=== PATIENT | female | born 1995 | race Caucasian/White ===

== ENCOUNTER 2025-02-28 08:53 | Outpatient (AMB) | payer MEDICAID, SELFPAY ==
--- NOTE | 2025-02-28 09:12 | AMB.GYNCLNOT ---
Vital Signs 02/28/25 09:20 Height 1.68 m Height Method Stated Weight 84.085 kg Weight Measurement Method Standing Scale BMI 29.7 BP 123/70 Blood Pressure Source Automatic Cuff Blood Pressure Location Left Upper Arm Position Sitting Respiration 18 Pulse 80 Pulse Source Monitor Temp 97.2 F Temp Source Oral Pulse Oximetry (%) 98 Oxygen Delivery Method Room Air Allergies/Home Meds Allergies & Medications Allergies No Known Allergies Allergy (Verified 02/28/25 09:21) Medication Reconciliation ibuprofen 800 mg tablet 800 mg PO Q8H PRN pain #20 tabs 07/23/23 [Rx Confirmed 02/28/25] ondansetron 4 mg disintegrating tablet 4 mg PO Q8H PRN nausea and vomiting #20 tabs 08/03/23 [Rx Confirmed 02/28/25] vits no.126-ferrous fum 28 mg iron-folic acid 800 mcg tablet (Classic ) 0.126 - 28 tab PO DAILY 30 days #60 tabs 02/28/25 [Rx] Intake Visit Data Collection New Patient or Established: Established Patient (seen at [facility] within 3 years) Reason for Visit:: amenorrhea/ test Seen by Clinical Staff ONLY (RN/MA): No Filter Filler Required: No Do You Feel Safe at Home: Yes Authorities Contacted: N/A PCP or OBGYN visit in last 3 months: No Hx Now: Yes Are you currently on any form of Control: No Last menstrual period: 01/13/25 Pain Present Currently: No Pain Scale Used: Angela-Solano/Numerical Pain scale:: 0 Smoking Status Smoking Status: Current every day smoker Cessation Counseling Provided: HILDA was advised that quitting smoking is the single most important factor to protect the health of themselves and their family. Discussed the benefits of quitting smoking with patient. Encouraged patient to quit smoking and provided Cessation assistance materials and resources. Tobacco Use: Vapor Cigarette Years smoked: 2 Are you interested in Quitting?: Yes Would you like additional Smoking Cessation Counseling?: No Software Applications Specialist history Software Applications Specialist History Menstrual regularity: regular Flow: normal Monthly: Yes How many days does period last: 7 Menopausal: No Currently sexually active: Yes Questionnaires Covid-19 Vaccine Questionnaire Has patient been vacinated for Covid-19 Have you been vacinated for Covid-19: Yes PHQ-9 PHQ-2 Over the last 2 weeks, how often have you been bothered by any of the following problems? 1. Little interest or pleasure in doing things: not at all 2. Feeling down, depressed, or hopeless: not at all Total score: 0 PHQ-9 3. Trouble falling or staying asleep, or sleeping too much: Not at all 4. Feeling tired or having little energy: Not at all 5. Poor appetite or overeating: Not at all 6. Feeling bad about yourself - or that you are a failure or have let yourself or your family down: Not at all 7. Trouble concentrating on things, such as reading the newspaper or watching television: Not at all 8. Moving or speaking so slowly that other people could have noticed? - Or the opposite - being so fidgety or restless that you have been moving around a lot more than usual: not at all 9. Thoughts that you would be better off or of hurting yourself in some way: Not at all Total score: 0 If you checked off any problems, how difficult have these problems made it for you to do your work, take care of things at home, or get along with other people?: not difficult at all Source: Developed by Drs. Hussein Oliver, Ximena Massey, Sanya Khanna and colleagues, with an educational wiley from [employer]. Depression screen completed yes Social History Living Situation History Marital Status: Single Lives With: Family Housing: House Housing Other:: Patient lives at home with her girlfriend, Mai Tobacco History Smoking Status: Current every day smoker Second Hand Smoke Exposure: No Alcohol History Alcohol Intake: Current Alcohol Intake Frequency: 3 or More Drinks per Day Domestic Abuse History Do You Feel Safe at Home: Yes Past Medical History Past Medical History Have you ever been diagnosed with any of the following: Cardiology Problems Congestive Heart Failure: No Respiratory Problems Chronic Obstructive Pulmonary Disease (COPD): No Asthma: No Genital/Urinary Problems Renal Disease: No Endocrine Problems Diabetes Mellitus Type 1: No Diabetes Mellitus Type 2: No Blood Problems Sickle Cell Disease: No History of Present Illness HPI Narrative 29 yo g2po,TAB 1 for + test. not using contraception, unplanned . lmp 01/13/25. EDC 10/22/25. IUP 7w3. no PMH, feels anxious. TAB x1, vapes daily x 3 month to relieve stress. c/o nausea. feels tire. no SAB complaints. FOB involved, Happy with + test. Review of Systems Review of Systems Systems Reviewed: All systems reviewed, normal except as documented Exam Narrative Physical exam: + urine preg test General Limitations: no limitations General Appearance: alert, in no apparent distress, comfortable, cooperative, healthy appearing, well developed and well groomed ENT ENT exam: Present normal exam, normal oropharynx and mucous membranes moist Chest Chest inspection: Present normal inspection and symmetric chest wall rise Resp Respiratory exam: Present normal lung sounds bilaterally Card Cardiovascular exam: Present regular rate, normal rhythm and normal heart sounds Abdominal Abdominal exam: Present soft and normal bowel sounds Psych Psychiatric exam: Present normal affect and normal mood Results Objective Laboratory: + preg test Assessment & Plan Diagnosis / Problem List (1) Amenorrhea: Status: Acute (2) Encounter for test, result positive: Status: Acute Plan penatal vitamin ordered, OB panel today, discuss sab precaution, patient declined appointment for anxiety. discuss diet and weight. RTC OBI in 3 week. continue to work on stop smoking and caffiene use RTC 4 week OBI Additional Plan Follow Up: 4 Weeks (OBI) Office Procedures OB Clinic LOC & Office Proc's Nursing/Assessment Patient Status: Established Patient OB Clinic Nursing Assessment: BP Monitoring, Medication Reconciliation, Update PMH in EMR and Vital Signs OB Clinic Coordination of Care: Consent,records obtained, informed consent, Education Simp Pt/Fam and Staff clarify orders Miscellaneous Interventions: Blood/Urine Collection Established Patient Charge Established Patient Point Assignment: 105 Established Patient Point Charge: EP Level 3 (80-115) In Clinic Bedside tests Bedside HCG: Yes Urine HCG Ambulatory Location Ambulatory Dept Location: OB Clinic Urine HCG HCG: Yes Results Urine HCG Urine HCG Positive Last Edit by Jessica Randolph MA on 02/28/25 09:23
[2025-02-28 09:20] VITALS: BP 123/70; PULSE 80; RESP 18; TEMP 36.2; O2SAT 98; BMI 29.7
== END 2025-02-28 09:29 | disposition home or self-care (01) ==
LOC: HODSOBC 08:53
PROVIDERS: Supervising Provider Advanced Practice Midwife; Visit Provider Advanced Practice Midwife
DX: Z32.01 Encounter for pregnancy test, result positive (principal); N91.2 Amenorrhea, unspecified
CPT/HCPCS: 81025; 99213; G0463

== ENCOUNTER 2025-04-12 07:31 | Day surgery (SDC) | payer MEDICAID, SELFPAY ==
[2025-04-12] VITALS (9 sets, daily range): BP systolic 100–125; BP diastolic 51–92; PULSE 62–89; RESP 15–21; TEMP 36.4–36.8; O2SAT 96–100; BMI 35.5
--- NOTE | 2025-04-12 08:05 | XR_ITS ---
Examination: OB Transvaginal ultrasound of the pelvis, complete Technique: Transvaginal sonographic images pelvis performed using obrien scale imaging Exam date and time: April 12, 2025 0807 hours INDICATIONS: Vaginal bleeding with pelvic cramping beginning today FINDINGS: Uterus 10.6 cm, abnormal intrauterine gestational sac extending to the lower uterine segment, measuring 4.3 cm corresponding to 9 weeks 6 days gestational age No pole, no cardiac activity Right ovary 2.4 cm arterial flow Left ovary 3.0 cm arterial flow No fluid in the cul-de-sac IMPRESSION: Findings consistent with spontaneous in progress Recommend short-term follow-up pelvic sonography.
[2025-04-12 08:11] LABS: Basophils % (Auto) 0 % (0-2.5); Eosinophils # (Auto) 0.1 Thou/mm3 (0.0-0.5); Eosinophils % (Auto) 1 % (0-10); Hematocrit 35.9 % (36.0-46.0); Hemoglobin 11.9 g/dL (12.0-16.0); Immature Granulocytes % (Auto) 0 % (0-0); Immature Granulocytes Auto 0.03 Thou/mm3 (0.00-0.00); Lymphocytes # (Auto) 2.4 Thou/mm3 (1.0-4.8); Lymphocytes % (Auto) 26 % (10-50); Mean Corpuscular HGB Conc 33.1 g/dl (31.0-37.0); Mean Corpuscular Hemoglobin 28.7 pg (25.0-35.0); Mean Corpuscular Volume 87 fL (80-100); Monocytes % (Auto) 11 % (0-12); Neutrophils # (Auto) 5.6 Thou/mm3 (1.8-7.7); Neutrophils % (Auto) 61 % (37-80); Nucleated Red Blood Cell % 0 /100 WBC (0); Platelet Count 236 Thou/mm3 (140-440); RDW Standard Deviation 40.2 fL (36.4-46.3); Red Blood Count 4.14 Miln/mm3 (4.00-5.20); White Blood Count 9.2 Thou/mm3 (3.6-11.0)
[2025-04-12 08:56] LABS: Alanine Aminotransferase 38 U/L (10-49); Albumin, Serum 4.3 gm/dL (3.5-5.0); Albumin/Globulin Ratio 1.9 (1.2-2.2); Alkaline Phosphatase 46 U/L (46-116); Anion Gap 11 (7-16); Aspartate Amino Transferase 19 U/L (0-34); BUN/Creatinine Ratio 10 Ratio (12-20); Beta HCG,Quantitative 3954 mIU/mL (<5.0); Bilirubin,Total 0.7 mg/dL (0.3-1.2); Blood Urea Nitrogen < 5 mg/dL (9-23); Calcium 9.1 mg/dL (8.3-10.6); Calcium (Corrected) 9.1 mg/dL (8.5-10.1); Carbon Dioxide 23.3 mMol/L (20.0-31.0); Chloride 106 mMol/L (98-107); Creatinine (Component) 0.5 mg/dL (0.6-1.3); Estimated Creatinine Clearance 159.5 mL/min (>60); Globulin 2.3 gm/dL (2.3-3.5); Glucose 99 mg/dL (74-106); Osmolality,Calculated 276 (275-295); Potassium 3.4 mMol/L (3.4-5.1); Sodium 140 mMol/L (136-145); Total Protein 6.6 gm/dL (5.7-8.2); eGFR > 60 See Note
--- NOTE | 2025-04-12 10:16 | EDNOTE_ITS ---
ED OB Contraction Preg RMI/HPI General Chief complaint: OB/Uterine Contractions Stated complaint: SPOTTING/CRAMPING SINCE LAST NIGHT; PREG 14WKS Time Seen by Provider: 04/12/25 07:35 Arrival date/time: 04/12/25 07:31 29yr old female presents to the Emergency Department today for complaints of vaginal bleeding and pelvic pain patient reports she is approximatelyb 14 weeks Limitations: no limitations Related Data Previous Rx's ?Medication ?Instructions ?Recorded ibuprofen 800 mg tablet 800 mg PO Q8H PRN pain #20 t abs 07/23/23 ondansetron 4 mg disintegrating 4 mg PO Q8H PRN nausea and 08/03/23 tablet vomiting #20 tabs vits no.126-ferrous fum 0.126 - 28 tab PO SUNDAR LY 30 days 02/28/25 28 mg iron-folic acid 800 mcg #60 tabs tablet (Classic ) amoxicillin 875 mg-potassium 1 tab PO BID 7 days #14 t abs 04/12/25 clavulanate 125 mg tablet hydrocodone 5 mg-acetaminophen 325 1 tab PO Q6H PRN pa in 3 days #12 04/12/25 mg tablet tabs ibuprofen 600 mg tablet 600 mg PO Q6H PRN fever or p ain 10 04/12/25 days #40 tabs Allergies Allergy/AdvReac Type Severity Reaction Status Date / Time No Known Allergies Allergy Verified 04/12/25 07:34 Review of Systems Review of Systems Systems Reviewed: All systems reviewed, normal except as documented Constitutional Constitutional: Reports system reviewed and no additional complaints, except as documented, Denies fever(s) and Denies headache(s) Eyes Eyes: Reports system reviewed and no additional complaints, except as documented and Denies blurry vision ENT Ears, Nose, Mouth, and Throat: Reports system reviewed and no additional complaints, except as documented, Denies headache(s), Denies nasal congestion and Denies nasal discharge Cardiovascular Cardiovascular: Reports system reviewed and no additional complaints, except as documented, Denies chest pain and Denies dyspnea Respiratory Respiratory: Reports system reviewed and no additional complaints, except as documented, Denies chest congestion, Denies cough and Denies dyspnea Gastrointestinal Gastrointestinal: Reports system reviewed and no additional complaints, except as documented and Denies abdominal pain Genitourinary Genitourinary: Reports system reviewed and no additional complaints, except as documented, Reports abnormal vaginal bleeding, Reports flank pain and Reports pelvic pain Integumentary/Breasts Skin/Breast: Reports system reviewed and no additional complaints, except as documented and Denies rash Neurologic Neurologic: Reports system reviewed and no additional complaints, except as documented, Reports as per HPI and Denies headache(s) Past Medical History Past Medical History CARDIAC: Negative Cardiac Disorders or Congestive Heart Failure RESPIRATORY: Negative Chronic Obstructive Pulmonary Disease (COPD) or Asthma GENITOURINARY: Negative Renal Disease ENDOCRINE: Negative Diabetes Mellitus Type 1 or Diabetes Mellitus Type 2 HEMATOLOGIC: Negative Sickle Cell Disease Social History SMOKING STATUS: Former smoker SECOND HAND EXPOSURE: No SUBSTANCE USE: crack/cocaine ED Exam General Limitations: Present no limitations General appearance: Present alert and in no apparent distress Head Head exam: Present atraumatic, normocephalic and normal inspection Eye Eye exam: Present normal appearance, PERRL and EOMI; Absent conjunctival injection ENT ENT exam: Present normal exam, normal oropharynx and mucous membranes moist Neck Neck exam: Present normal inspection, full ROM and trachea midline Chest Chest inspection: Present normal inspection and symmetric chest wall rise Respiratory Respiratory exam: Present normal lung sounds bilaterally; Absent respiratory distress Cardiovascular Cardiovascular exam: Present regular rate, normal rhythm and normal heart sounds Abdominal Exam Abdominal exam: Present soft and normal bowel sounds; Absent distention, tenderness, guarding, rebound or rigidity Extremities Exam Extremities exam: Present normal inspection and full ROM Back Exam Back exam: Present normal inspection and full ROM Neurological Exam Neurological exam: Present alert, oriented X3 and CN II-XII intact Psychiatric Psychiatric exam: Present normal affect and normal mood Skin Skin exam: Present warm, dry, intact and normal color Course Quality Measures none Orders Category Date Time Status Patient Condition Routine Admission 04/12/25 11:59 Ordered SDC [Place in [facility] Day [facility]] Routine Admission 04/12/25 11:59 Active Activity as Tolerated Routine Care 04/12/25 11:59 Ordered COVID-19 Screening Questionnaire NOW Care 04/12/25 11:56 Active Clip Operative Site as Needed X1 Care 04/12/25 11:59 Active Decision to Admit X1 Care 04/12/25 10:14 Active May take PO meds w/sips of H2O PRN Care 04/12/25 11:59 Active NPO NOW Care 04/12/25 11:59 Active Obtain Written Consent For: NOW Care 04/12/25 11:59 Active Sequential Compression Device NOW Care 04/12/25 11:59 Active Consult to Gynecology Stat Cons 04/12/25 10:14 Ordered Diet NPO (NOW) Diet 04/12/25 11:59 Active Discharge Routine Discharge 04/12/25 12:43 Active US OB transvaginal Stat Exams 04/12/25 08:05 Completed ABO/RH Type Stat Lab 04/12/25 08:00 Completed Beta HCG,Quantitative Stat Lab 04/12/25 08:00 Completed CBC Stat Lab 04/12/25 08:00 Completed Comprehensive Metabolic Panel Stat Lab 04/12/25 08:00 Completed Acetaminophen Tab [Tylenol Tab] Med 04/12/25 12:50 Active 650 mg PO X1 PRN Dexamethasone Inj [Decadron Inj] Med 04/12/25 12:03 Discontinued 10 mg .ROUTE .STK-MED ONE Lidocaine 1% Pf 2 ml [Xylocaine Pf 1% 2 ml] Med 04/12/25 12:16 Discontinued 2 ml .ROUTE .STK-MED ONE Meperidine Inj [Demerol Inj] Med 04/12/25 12:50 Active 12.5 mg IVP Q5M PRN Metoclopramide Inj [Reglan Inj] Med 04/12/25 12:03 Discontinued 10 mg .ROUTE .STK-MED ONE Morphine Inj Med 04/12/25 10:13 Discontinued 4 mg IVP X1 ONE Ondansetron Inj [Zofran Inj] Med 04/12/25 10:13 Discontinued 4 mg IVP X1 ONE Ondansetron Inj [Zofran Inj] Med 04/12/25 12:50 Active 4 mg IVP X1 PRN PHENYLEPHRINE INJ in NS [Tiago-synephrine Inj/Ns] Med 04/12/25 12:20 Discontinued 1,000 mcg .ROUTE .STK-MED ONE Promethazine Inj [Phenergan Inj] 12.5 mg Med 04/12/25 12:50 Active Sodium Chloride 0.9% [Ns] 50 ml IV X1 Propofol Inj [Diprivan Inj] Med 04/12/25 12:02 Discontinued 200 mg IV .STK-MED ONE Ringers Lactated 1000 ml [Lactated Ringers] 1,000 ml Med 04/12/25 12:00 Active IV 125 mls/hr Sodium Chloride 0.9% 1000 ml [Ns] 1,000 ml Med 04/12/25 10:13 Discontinued IV 999 mls/hr fentaNYL INJ [Sublimaze Inj] Med 04/12/25 12:02 Discontinued 100 mcg .ROUTE .STK-MED ONE fentaNYL INJ [Sublimaze Inj] Med 04/12/25 12:20 Discontinued 100 mcg .ROUTE .STK-MED ONE fentaNYL INJ [Sublimaze Inj] Med 04/12/25 12:50 Active 50 mcg IVP Q5MIN PRN hydrALAZINE INJ [Apresoline Inj] Med 04/12/25 12:50 Active 5 mg IV Q20MIN PRN Code Status Routine Oth 04/12/25 11:59 Ordered Oxygen Delivery PRN RT 04/12/25 12:50 Active Vital Signs Vital signs: Vital Signs Temperature 98.3 F 04/12/25 07:49 Pulse Rate 89 04/12/25 07:49 Respiratory Rate 18 04/12/25 07:49 Blood Pressure 119/78 04/12/25 07:49 Pulse Oximetry (%) 99 04/12/25 07:49 Oxygen Delivery Method Room Air 04/12/25 07:49 O2 saturation 99% room air within normal limits OB/Uterine Contractions MDM Narrative MDM Narrative:: 29yr old female presents to the Emergency Department today for complaints of vaginal bleeding and pelvic pain patient reports she is approximatelyb 14 weeks Initially on exam patient appears relatively comfortable Has normal reevaluation patient lab work and imaging is completed Patient appears to be writhing in pain patient reports bleeding and significant pain. Consultation: I spoke with Dr. Hussein WINDOWS CONSULTANT I feel that the patient needs a D&C at this time he will come evaluate the patient for further determination for care At time of admission patient is more comfortable after receiving medication but still does report pain and bleeding Patient data External records reviewed:: [facility] previous records Clinical information provided by:: patient Social determinants that could affect healthcare access:: none Patient has the following chronic illnesses:: None How is presenting disease/condition affected by chronic disease/condition?: no chronic disease Evaluation data The following diagnostics were reviewed and interpreted by me:: lab results and radiology exam(s) Lab and/or radiology exams considered but not ordered:: Labs radiology obtain Interpretation Summary: Reviewed by me Medications / Prescriptions Medications or Prescriptions considered but not ordered:: Given Medication administrations:: Medication Administration History Acetaminophen (Acetaminophen 325 Mg Tablet) 650 mg PO X1 PRN PRN Reason: PAIN 1-3 Stop: 04/13/25 12:49 Fentanyl Citrate (Fentanyl Cit Inj 50 Mcg/Ml Amp 2ml) 50 mcg IVP Q5MIN PRN PRN Reason: PAIN SCALE 4-10(Mod-Sev Stop: 04/12/25 14:50 Hydralazine HCl (Hydralazine Inj 20 Mg/Ml Vial) 5 mg IV Q20MIN PRN PRN Reason: SEE COMMENTS Stop: 04/12/25 14:50 Lactated Ringer's (Lactated Ringers) 1,000 mls @ 125 mls/hr IV .Q8H HANNAH Stop: 05/12/25 11:59 Promethazine HCl 12.5 mg/ (Sodium Chloride) 50.5 mls @ 2.5 mls/min IV X1 PRN PRN Reason: NAUSEA OR VOMITING Stop: 04/13/25 12:49 Meperidine HCl (Meperidine Inj 50 Mg/Ml Vial) 12.5 mg IVP Q5M PRN PRN Reason: SHIVERING Stop: 04/12/25 14:50 Ondansetron HCl (Ondansetron Inj 2 Mg/Ml Inj 2 Ml) 4 mg IVP X1 PRN PRN Reason: NAUSEA OR VOMITING Stop: 04/13/25 12:49 Discontinued Medications Dexamethasone Sodium Phosphate (Dexamethasone Sod Phos Inj 10 Mg/Ml Vial) Confirm Administered Dose 10 mg .ROUTE .STK-MED ONE Stop: 04/12/25 12:04 Fentanyl Citrate (Fentanyl Cit Inj 50 Mcg/Ml Amp 2ml) Confirm Administered Dose 100 mcg .ROUTE .STK-MED ONE Stop: 04/12/25 12:03 Fentanyl Citrate (Fentanyl Cit Inj 50 Mcg/Ml Amp 2ml) Confirm Administered Dose 100 mcg .ROUTE .STK-MED ONE Stop: 04/12/25 12:21 Sodium Chloride (Ns) 1,000 mls @ 999 mls/hr IV .Q1H1M ONE Stop: 04/12/25 11:13 Last Infusion: 04/12/25 10:54 Dose: Infused Documented By: Admin: 04/12/25 10:18 Dose: 999 mls/hr Documented By: BRADLEY Lidocaine HCl (Lidocaine Inj Pf 1% 2 Ml Vial) Confirm Administered Dose 2 ml .ROUTE .STK-MED ONE Stop: 04/12/25 12:17 Metoclopramide HCl (Metoclopramide Inj 5 Mg/Ml Vial 2 Ml) Confirm Administered Dose 10 mg .ROUTE .STK-MED ONE Stop: 04/12/25 12:04 Morphine Sulfate (Morphine Sulf Inj 10 Mg/Ml Vial) 4 mg IVP X1 ONE Stop: 04/12/25 10:14 Last Admin: 04/12/25 10:24 Dose: 4 mg Documented By: VL Ondansetron HCl (Ondansetron Inj 2 Mg/Ml Inj 2 Ml) 4 mg IVP X1 ONE; Protocol Stop: 04/12/25 10:14 Last Admin: 04/12/25 10:24 Dose: 4 mg Documented By: VL Phenylephrine HCl (Phenylephrine Inj In Ns 100 Mcg/Ml 10 Ml Syringe) Confirm Administered Dose 1,000 mcg .ROUTE .STK-MED ONE Stop: 04/12/25 12:21 Propofol (Propofol Inj 10 Mg/Ml Vial 20 Ml) Confirm Administered Dose 200 mg IV .STK-MED ONE Stop: 04/12/25 12:03 Given Consultations Consultation(s) initiated? (list below): Yes Consultation #1 (Physician, Specialty, Details): Dr. Hussein Diagnosis OB Contractions Differential Diagnosis: other (Missed , threatened abor tion, small uterine bleeding) Most likely diagnosis given after review of the tests above:: Incomplete Admission Indicated Admission indicated?: indicated Explain why admission is indicated or not indicated:: Indicated for D&C Admission Request Was there a request for admission?: Yes Admission Attestation Admission request attestation: Discussed case with [] from Hospitalist service regarding admission. Discussed patients ED course, exam findings, labs, and radiology results. The Hospitalist [agrees,declines] to accept the patient for admission. Disposition Plan Disposition Plan: Admit Discharge Plan Plan Patient Disposition: Other Care w/in Hosp (SDC/[facility]) Discharge Disposition comment: Stable Patient condition on transfer: Stable Problem List Clinical Impression: Incomplete , Vaginal bleeding, Pelvic pain Patient/Caregiver Discharge Instructions Discharge Activity: activity as tolerated PA/SALESPERSON USED CARS Supervising Physician PA/SALESPERSON USED CARS Supervising Physician: Dr. arellano
[2025-04-12] MEDS: SODIUM CHLORIDE 0.9% 1000 ML 1,000 ML 999 ML IV (10:18)
[2025-04-12] MEDS: MORPHINE SULF INJ 10 MG/ML VIAL 4 MG IVP (10:24)
[2025-04-12] MEDS: ONDANSETRON INJ 2 MG/ML INJ 2 ML 4 MG IVP (10:24)
--- NOTE | 2025-04-12 10:32 | PC.NURSE ---
Patient in to ED for vaginal bleeding. Patient 9-10 weeks 2. Patient states bleeding started last night but cramping and bleeding got worse this morning. Patient denies any medical history, no current meds except prenatals taken. Patient alert and oriented X4. Vitals stable. Plan of care for surgery explained to patient. Patient in agreement with plan.
--- NOTE | 2025-04-12 11:44 | PC.NURSE ---
Patient changed and repositioned for comfort. Patient saturated one pad. Patient vital signs stable. Dr. Hussein in to assess patient at bedside. explained procedure to patient at bedside
--- NOTE | 2025-04-12 12:00 | ESHP_ITS ---
Documentation for date of: 04/12/25 MANAGER PULMONARY - HPI History of Present Illness History of present illness: Ms. ROMAN is a 29 year old female who presents with a spontaneous miscarriage in progress, experiencing significant pain. She reports cramping pain coming back in waves, consistent with her uterus attempting to expel the . The patient mentions having vomited this morning after drinking water, indicating associated nausea. Her last meal was around 8 PM the previous night, and she has not eaten since then due to her current condition. This is Yari's first miscarriage, and she reports a history of one prior . The exact gestational age is not specified, but it is noted to be very early in the . Her obstetric history is A2 L0, including the current miscarriage and one previous elective . The patient's surgical history includes one previous . In the review of systems, gastrointestinal symptoms are positive for vomiting. Diagnostic Test Results and Labs: - Quantitative hCG (FriApr 12 2025): 3200 - CVC (FriApr 12 2025): 12 - Diagnostic imaging (Date N/A): Spontaneous [miscarriage] in progress Review of Systems Review of Systems Systems Reviewed: All systems reviewed, normal except as documented Meds Home Medications and Allergies Allergies Allergy/AdvReac Type Severity Reaction Status Date / Time No Known Allergies Allergy Verified 04/12/25 07:34 Exam - MANAGER PULMONARY Vital Signs Temp Pulse Resp BP Pulse Ox O2 Del Method O2 Flow Rate 98.3 F 62 18 125/92 H 100 Nasal Cannula 1.5 04/12/25 07:49 04/12/25 10:38 04/12/25 10:38 04/12/25 10:38 04/12/25 10:38 04/12/25 10:38 04/12/25 10:38 Constitutional Constitutional: no acute distress Routine HEENT Exam Head: Present normocephalic and atraumatic Eye: Present EOMI and PERRL ENT: Present mucous membranes moist Routine Neck Exam Neck: Present supple and trachea midline Routine Respiratory Exam Respiratory: Present chest non-tender, lungs clear, normal breath sounds and no resp distress Routine Cardiovascular Exam Cardiovascular: Present RRR Routine Abdominal Exam Abdominal: Present soft and normoactive bowel sounds Routine Extremities Exam Extremities: Present full ROM Routine Skin Exam Skin: Present intact and dry Routine Neurological Exam Neurological: Present alert, oriented X3 and CN II-XII intact Routine Psychiatric Exam Psychiatric: Present normal affect and normal thought process MANAGER PULMONARY - Results Labs 04/12/25 08:00 04/12/25 08:00 Labs: Short CBC 04/12/25 Range/Units 08:00 WBC 9.2 (3.6-11.0) Thou/mm3 Hgb 11.9 L (12.0-16.0) g/dL Hct 35.9 L (36.0-46.0) % Plt Count 236 (140-440) Thou/mm3 BMP 04/12/25 08:00 Sodium 140 Potassium 3.4 Chloride 106 Carbon Dioxide 23.3 BUN < 5 L Creatinine 0.5 L Glucose 99 Calcium 9.1 Liver Function 04/12/25 Range/Units 08:00 Total Bilirubin 0.7 (0.3-1.2) mg/dL AST 19 (0-34) U/L ALT 38 (10-49) U/L Alkaline Phosphatase 46 (46-116) U/L Albumin 4.3 (3.5-5.0) gm/dL Assessment and Plan Assessment and plan (1) Incomplete : Status: Acute Assessment and plan: Spontaneous Miscarriage: - Patient experiencing spontaneous miscarriage with active cramping and pain. - Quantitative hCG was 3200, and cervical dilation was 12. - Early stage , visual determination of development not possible. - Uterus actively socrates to expel products of conception. Plan: - Perform dilatation and curettage (D&C) under general anesthesia. - Obtained informed consent for procedure. - Discussed risks, benefits, and alternatives with patient. - Send products of conception for genetic studies. - Provide post-procedure care instructions. - Discharge patient home following the procedure. Quality Measures Quality Measures none
--- NOTE | 2025-04-12 12:11 | PC.NURSE ---
Report given to DAKOTAH Mensah in surgery. Patient taken to surgery maricel bowen. Surgery staff aware consent still needs to be signed.
--- NOTE | 2025-04-12 12:43 | SUR.PHASEI ---
1243 Patient arrived to recovery resting comfortably in [facility], drowsy and able to arouse with verbal prompting, breathing unlabored, vital signs stable, denies pain, dressing intact to vaginal area; peripad, no bleeding noted, denies nausea, report received from Mateo CLAIRE and Dr. Junior
--- NOTE | 2025-04-12 12:54 | SUR.PHASEI ---
1254 Report given to Latisha CLAIRE
--- NOTE | 2025-04-12 12:55 | SUR.PHASEI ---
Received report on pt. s/p surgery from Mai Merrill RN. Pt. is resting with eyes closed, no c/o pain or nausea at this time, VSS, assessed mallorie-pad for bleeding, noted small amount of bright red blood to mallorie-pad.
[2025-04-12 13:41] LABS: Misc Send Out* See Sep Rpt
--- NOTE | 2025-04-12 13:56 | SUR.PHASEII ---
1356 Patient meets discharge criteria from recovery, awake and alert, breathing unlabored, vital sign stable, denies pain, dressing intact; scant amount of blood noted to pad, changed, patient educated on post op bleeding and when to seek medical attention both patient her boyfriend receptive, denies nausea, patient assisted with dressing into her clothing by her boyfriend, discharge instructions given to patient and patients boyfriend, boyfriend signed discharge instructions. Patient given all her belongings prior to discharge, transported via wheelchair and left in a private vehicle
--- NOTE | 2025-04-12 14:08 | SUR.PHASEI ---
1243 Patient arrived to recovery resting comfortably in [facility], drowsy and able to arouse with verbal prompting, breathing unlabored, vital signs stable, denies pain, dressing intact to vaginal area; peripad, no bleeding noted, denies nausea, report received from Mateo CLAIRE and Dr. Junior
--- NOTE | 2025-04-12 17:21 | PD.GYNPROC ---
Operative Note - ELECTRICIAN RECTIFIER MAINTENANCE Procedure Date of procedure: 04/12/25 Procedure Performed: Suction dilatation and curettage Indication: 29-year-old with incomplete brisk uterine hemorrhage with severe uterine cramping Anesthesia type: General Procedure description: Informed consent was obtained and the patient was taken to the operating room. Identity was confirmed using two patient identifiers. The patient was positioned on the operating table, and general anesthesia was administered. She was then placed in the dorsal lithotomy position using Josh stirrups. The perineum was prepped and draped in the usual sterile fashion. A straight catheter was used to empty the bladder. A weighted speculum was placed in the posterior vaginal fornix, and a right-angle retractor was used to retract the anterior vaginal wall. An atraumatic grasper was used to gently grasp the anterior lip of the cervix, which was placed under traction. Cervical length from the external to internal os was assessed, and a uterine sound was used to measure uterine depth. The cervix was noted to be dilated to approximately 12 mm. A 12 mm suction cannula was introduced through the cervical os, and multiple gentle passes were performed until evacuation of all tissue and blood clots was complete. Endometrial grating was palpated, and the uterus was noted to have contracted appropriately. The suction cannula was removed, and a gentle curettage was performed using a standard curette. All instruments were then withdrawn. Uterine bleeding was minimal. The atraumatic grasper was removed from the cervix, which was visualized and found to be hemostatic. The speculum was removed from the vaginal canal. The patient was then cleaned, undraped, and taken out of the lithotomy position. General anesthesia was reversed, and the patient was transferred to the recovery room in stable and awake condition. The procedure was well tolerated. All instrument, sponge, and lap counts were correct ?2. Estimated blood loss (ml): 50 Complications: none Surgical staff Operation Date: 04/12/25 12:30 Case Staff Anesthesiologist: Miles Junior Diagnosis Discharge Diagnosis (1) Incomplete : Status: Acute Problem List Completed Was Problem List Reviewed/Reconciled?: Yes
== END 2025-04-12 13:56 | disposition home or self-care (01) ==
LOC: SERX 11:58 → S2EX 12:13
PROVIDERS: Nurse Practitioner Primary Care; Emergency Provider Family Medicine; Referring Provider Obstetrics & Gynecology; Visit Provider Obstetrics & Gynecology
PROC: (CPT 58120; principal; 2025-04-12 12:15)
DX: O03.4 Incomplete spontaneous abortion without complication (principal); O21.9 Vomiting of pregnancy, unspecified; Z3A.14 14 weeks gestation of pregnancy
CPT/HCPCS: 59812; 36415; 76817; 80053; 84702; 85025; 86900; 86901; 88233; 88262; 88291; 96361; 96374; 96375; 99285; A4217; J1100; J2270; J2371; J2405; J2704; J2765; J3010; J3490; J7030

== ENCOUNTER 2025-04-20 09:10 | Outpatient (AMB) | payer MEDICAID, SELFPAY ==
--- NOTE | 2025-04-20 09:48 | GYNCLNT_ITS ---
Vital Signs 04/20/25 09:49 Weight 84.368 kg Weight Measurement Method Standing Scale BP 94/65 Blood Pressure Source Automatic Cuff Blood Pressure Location Right Upper Arm Position Sitting Respiration 17 Pulse 69 Pulse Source Monitor Temp 98.0 F Temp Source Temporal Artery Scan Pulse Oximetry (%) 98 Oxygen Delivery Method Room Air Allergies/Home Meds Allergies & Medications Allergies No Known Allergies Allergy (Verified 04/20/25 10:08) Medication Reconciliation ibuprofen 800 mg tablet 800 mg PO Q8H PRN pain #20 tabs 07/23/23 [Rx Confirmed 04/20/25] ondansetron 4 mg disintegrating tablet 4 mg PO Q8H PRN nausea and vomiting #20 tabs 08/03/23 [Rx Confirmed 04/20/25] vits no.126-ferrous fum 28 mg iron-folic acid 800 mcg tablet (Classic ) 0.126 - 28 tab PO DAILY 30 days #60 tabs 02/28/25 [Rx Confirmed 04/20/25] Intake Visit Data Collection New Patient or Established: Established Patient (seen at [facility] within 3 years) Reason for Visit:: ER FOLLOW UP Seen by Clinical Staff ONLY (RN/MA): No Teacher Required: No Do You Feel Safe at Home: Yes Authorities Contacted: N/A PCP or OBGYN visit in last 3 months: Yes Date of Last PCP or OBGYN visit: 04/12/25 Hx Now: No Are you currently on any form of Control: No Pain Present Currently: No Pain Scale Used: Angela-Solano/Numerical Pain scale:: 0 Smoking Status Smoking Status: Former smoker 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 1. Little interest or pleasure in doing things: not at all 2. Feeling down, depressed, or hopeless: not at all Total score: 0 PHQ-9 3. Trouble falling or staying asleep, or sleeping too much: Not at all 4. Feeling tired or having little energy: Not at all 5. Poor appetite or overeating: Not at all 6. Feeling bad about yourself - or that you are a failure or have let yourself or your family down: Not at all 7. Trouble concentrating on things, such as reading the newspaper or watching television: Not at all 8. Moving or speaking so slowly that other people could have noticed? - Or the opposite - being so fidgety or restless that you have been moving around a lot more than usual: not at all 9. Thoughts that you would be better off or of hurting yourself in some way: Not at all Total score: 0 If you checked off any problems, how difficult have these problems made it for you to do your work, take care of things at home, or get along with other people?: not difficult at all Source: Developed by Drs. Hussein Oliver, Ximena Massey, Sanya Khanna and colleagues, with an educational wiley from [employer] Depression screen completed yes Social History Living Situation History Marital Status: Unknown Lives With: Family Housing: House Housing Other:: Patient lives at home with her girlfriend, Mai Tobacco History Smoking Status: Former smoker Second Hand Smoke Exposure: No Alcohol History Alcohol Intake: Current Alcohol Intake Frequency: 3 or More Drinks per Day Domestic Abuse History Do You Feel Safe at Home: Yes History of Present Illness HPI Narrative Yari Carmichael, a 29-year-old female with a history of multiple miscarriages and therapeutic abortions, presents for hospital follow-up after an emergency room visit on April 12, 2025, for brisk hemorrhage due to an incomplete . The patient underwent a suction dilatation and curettage procedure during her emergency room visit. She reports that her bleeding has slowed down since the procedure, and she denies experiencing any fevers or chills. The patient appears to be recovering well from the recent event, with no reported complications or concerns. Yari's medical history is significant for multiple uabv-vk-gbdp miscarriages, as well as previous therapeutic abortions. This pattern of loss suggests a need for further investigation into potential underlying causes. Obstetric History - GPAL: G3+ + L0 - Current : Not currently - history: - Recent incomplete , treated with suction dilatation and curettage on April 12, 2025 - History of multiple bavy-mk-oorm miscarriages - History of previous therapeutic abortions Medical History - Emergency room visit on April 12, 2025, for brisk hemorrhage secondary to incomplete Surgical History - Suction dilatation and curettage on April 12, 2025 for incomplete with brisk hemorrhage Review of Systems General: Negative for fever, chills. Genitourinary: Positive for decreased vaginal bleeding. Review of Systems Review of Systems Systems Reviewed: All systems reviewed, normal except as documented Exam General General Appearance: alert, in no apparent distress and healthy appearing Head Head exam: atraumatic Neck Neck exam: Present normal inspection and trachea midline Chest Chest inspection: Present normal inspection and symmetric chest wall rise External exam: Present normal external exam; Absent tenderness Neuro Neurological exam: Present oriented X3 Psych Psychiatric exam: Present normal affect and normal mood Office Procedures OB Clinic LOC & Office Proc's Nursing/Assessment Patient Status: Established Patient OB Clinic Nursing Assessment: Medication Reconciliation, Update PMH in EMR and Vital Signs OB Clinic Coordination of Care: Complex Care and Chronic Disease 1-5, Consent,records obtained, informed consent, Education Simp Pt/Fam and Staff clarify orders Established Patient Charge Established Patient Point Assignment: 85 Established Patient Point Charge: EP Level 3 (80-115) Assessment & Plan Diagnosis / Problem List (1) Incomplete : Status: Acute Plan Yari Carmichael, 29-year-old female, presenting for hospital follow-up after emergency room visit on 04/12/2025 for brisk hemorrhage secondary to incomplete , with history of multiple rxis-mf-vnac miscarriages and previous therapeutic abortions. Incomplete with hemorrhage Assessment: Patient presented to the emergency room on 04/12/2025 with brisk hemorrhage secondary to incomplete . She subsequently underwent suction dilatation and curettage. Pathology results from the procedure showed chorionic villi with degenerative changes, benign decidual tissue, necroinflammatory debris, and fibrin, confirming the diagnosis of miscarriage. Chromosomal analysis report is still pending. Plan: - Await chromosomal analysis report from [place] (expected in approximately 2 weeks) - Contact patient with results once available - Advised patient to return if any issues arise Recurrent loss Assessment: Patient has a history of multiple frkm-mc-vhej miscarriages as well as previous therapeutic abortions. This history, combined with the current incomplete , suggests a pattern of recurrent loss. Plan: - Further evaluation may be necessary after receiving chromosomal analysis results
[2025-04-20 09:49] VITALS: BP 94/65; PULSE 69; RESP 17; TEMP 36.7; O2SAT 98
== END 2025-04-20 09:37 | disposition home or self-care (01) ==
LOC: HODSOBC 09:10
PROVIDERS: Supervising Provider Obstetrics & Gynecology; Visit Provider Obstetrics & Gynecology
DX: O03.4 Incomplete spontaneous abortion without complication (principal)
CPT/HCPCS: 99213; G0463

== ENCOUNTER 2025-05-31 10:16 | Inpatient (IN) | payer MEDICAID, SELFPAY ==
[2025-05-31] VITALS (22 sets, daily range): BP systolic 87–136; BP diastolic 65–99; PULSE 105–127; RESP 10–88; TEMP 36.9–37.2; O2SAT 90–100; BMI 29.5
[2025-05-31] MEDS: NALOXONE INJ 1 MG/ML SYRINGE 2 ML 0.5 MG IV ×2 (10:19→10:25)
[2025-05-31] MEDS: ONDANSETRON INJ 2 MG/ML INJ 2 ML 4 MG IVP ×3 (10:20→13:51)
[2025-05-31] MEDS: NALOXONE INJ 1 MG/ML SYRINGE 2 ML IV ×2 (10:29→13:40)
--- NOTE | 2025-05-31 10:33 | EKG_ITS ---
[facility] Test Date: 2025-05-31 Pat Name: HILDA ROMAN Department: Room: - Gender: Female Team Lead: : 1995 Requested By: Augustina Ross Order Number: [id number] Reading MD: Augustina Ross Measurements Intervals [place] Rate: 115 P: 31 MI: 124 QRS: 55 QRSD: 90 T: 20 QT: 315 QTc: 437 Interpretive Statements SINUS TACHYCARDIA ABNORMAL RHYTHM ECG Compared to ECG 07/04/2023 16:46:25 Sinus rhythm no longer present /store/S0/[id number].pdf
--- NOTE | 2025-05-31 10:35 | EDNOTE_ITS ---
Altered Mental Status RME/HPI General Chief Complaint: Altered Mental Status Stated Complaint: STAT,AMS Time Seen by Provider: 05/31/25 10:33 Arrival date/time: 05/31/25 10:16 RME / HPI RME / HPI narrative: 29 year old female patient with history of anxiety presents to the ED BIBA from home for evaluation of altered mental status. Per medics report, the patient was found unresponsive by boyfriend this morning. On their arrival, patient GCS of 8 with pin-point pupils, saturating 70% on room air, and respiratory rate of 10. Began bagging with BVM and was given 1mg of IV Narcan with very minimal improvement. With BVM patient saturating 90-91%. Prehospital BP 107/68, HR 123, and FSBS 103. Per medics, boyfriend on scene reported they were drinking all night and took her Xanax this morning, time unknown. Related Data Previous Rx's ?Medication ?Instructions ?Recorded ibuprofen 800 mg tablet 800 mg PO Q8H PRN pain #20 t abs 07/23/23 ondansetron 4 mg disintegrating 4 mg PO Q8H PRN nausea and 08/03/23 tablet vomiting #20 tabs vits no.126-ferrous fum 0.126 - 28 tab PO SUNDAR LY 30 days 02/28/25 28 mg iron-folic acid 800 mcg #60 tabs tablet (Classic ) Allergies Allergy/AdvReac Type Severity Reaction Status Date / Time No Known Allergies Allergy Verified 04/20/25 10:08 Review of Systems Review of Systems ROS Unobtainable: unobtainable due to mental status Past Medical History Past Medical History NEUROLOGIC: Negative Seizures CARDIAC: Negative Cardiac Disorders or Congestive Heart Failure RESPIRATORY: Negative Chronic Obstructive Pulmonary Disease (COPD) or Asthma GENITOURINARY: Negative Renal Disease ENDOCRINE: Negative Diabetes Mellitus Type 1 or Diabetes Mellitus Type 2 HEMATOLOGIC: Negative Sickle Cell Disease OTHER HISTORY: Negative Blood Transfusions, Blood Transfusion Reaction or Anesthesia Reactions Social History SMOKING STATUS: Unknown if ever smoked SECOND HAND EXPOSURE: No SUBSTANCE USE: crack/cocaine ED Exam Narrative Physical exam: GENERAL APPEARANCE: Patient arrived altered, diaphoretic, with agonal respirations. After Narcan the patient became tachypneic. HEENT: Normocephalic, atraumatic; pupils are pin point bilaterally; mucous membranes pink, moist; oropharynx clear NECK: Supple LUNGS: Agonal respirationss; CTABL; no wheezes, no rales, no rhonchi HEART: Regular rate, regular rhythm; normal S1, S2; no murmurs ABDOMEN: non distended; normal BS; soft, no guarding, no rebound; no masses, no organomegaly, no hernia BACK: no CVA tenderness EXTREMITIES: atraumatic; no edema. NEUROLOGIC: Altered, unable to assess. SKIN: warm, diaphoretic, normal color; no rashes Course Course Course Narrative: 1019: Pupils are pin-point, given 0.5mg Narcan with increase in respiratory rate. Saturating 91-93% on 15L Oxy mask. Zofran ordered. 1024: Pupils again are pin-point, given 0.5mg Narcan, blood sugar 87 1029: Given 1mg Narcan and shortly after began vomiting, ordered Zofran. 1340: On reassessment, pupils are pin-point. Ordered an additional dose of 1mg of Narcan. 1345: Pharmacy called to start a Narcan drip. Quality Measures none Orders Category Date Time Status Admit to Inpatient Status Routine Admission 05/31/25 14:27 Active Patient Condition Routine Admission 05/31/25 13:56 Ordered Patient Condition Routine Admission 05/31/25 14:26 Ordered Marine Architect NOW Care 05/31/25 10:33 Completed EKG (ED ONLY) *Do not use* NOW Care 05/31/25 10:33 Completed EKG (ED ONLY) *Do not use* NOW Care 05/31/25 13:28 Completed NPO NOW Care 05/31/25 13:56 Active Diet NPO (NOW) Diet 05/31/25 13:[address] head/brain wo con Stat Exams 05/31/25 11:27 Completed EKG (ED Only) Stat Exams 05/31/25 10:33 Draft EKG (ED Only) Stat Exams 05/31/25 13:28 Ordered XR chest 1V portable Routine Exams 05/31/25 14:26 Completed XR chest 1V portable Stat Exams 05/31/25 10:33 Completed ABG [Arterial Blood Gas] Stat Lab 05/31/25 13:22 Completed Alcohol, Blood Medical Stat Lab 05/31/25 11:42 Completed Ammonia Stat Lab 05/31/25 11:42 Completed B-Type Natriuretic Peptide Stat Lab 05/31/25 11:42 Completed Blood Culture (Lab) Stat Lab 05/31/25 11:42 Received CBC AM DRAW Lab 06/01/25 05:00 Ordered CBC AM DRAW Lab 06/02/25 05:00 Ordered CBC AM DRAW Lab 06/03/25 05:00 Ordered CBC AM DRAW Lab 06/04/25 05:00 Ordered CBC Stat Lab 05/31/25 11:42 Completed Comprehensive Metabolic Panel AM DRAW Lab 06/01/25 05:00 Ordered Comprehensive Metabolic Panel AM DRAW Lab 06/02/25 05:00 Ordered Comprehensive Metabolic Panel AM DRAW Lab 06/03/25 05:00 Ordered Comprehensive Metabolic Panel AM DRAW Lab 06/04/25 05:00 Ordered Comprehensive Metabolic Panel Stat Lab 05/31/25 11:42 Completed Drug Screen,Urine Stat Lab 05/31/25 11:24 Completed Lactate (Lactic Acid) Stat Lab 05/31/25 11:42 Completed Lipase Stat Lab 05/31/25 11:42 Completed Magnesium Stat Lab 05/31/25 11:42 Completed Procalcitonin Stat Lab 05/31/25 11:42 Completed Troponin I Stat Lab 05/31/25 11:42 Completed UA, C/S IF [Urinalysis, C/S if Indicated] Stat Lab 05/31/25 11:24 Completed Acetaminophen Supp [Tylenol Supp] Med 05/31/25 14:26 Active 650 mg VT Q4HR PRN Acetaminophen Tab [Tylenol Tab] Med 05/31/25 13:56 Active 650 mg PO Q4HR PRN Acetaminophen Tab [Tylenol Tab] Med 05/31/25 14:26 Discontinued 650 mg PO Q4HR PRN Enoxaparin [Lovenox] Med 05/31/25 14:00 Active 40 mg SC QDAY Levofloxacin/D5w 500 mg Ivpb [Levaquin Ivpb] Med 05/31/25 11:25 Discontinued 500 mg in 100 ml IV X1 Magnesium Sulfate 2 GM Ivpb [Magnesium Sulfate Ivpb] Med 05/31/25 13:17 Discontinued 2 gm in 50 ml IV X1 Milk Of Magnesia Susp [Mom Susp] Med 05/31/25 14:26 Active 30 ml PO QDAY PRN NALOXONE INJ (Syringe) [Narcan Inj (Syringe)] Med 05/31/25 13:42 Discontinued 0.8301 mg IV X1 ONE NALOXONE INJ (Syringe) [Narcan Inj (Syringe)] 2 mg Med 05/31/25 14:00 Active Sodium Chloride 0.9% 500 ml [Ns] 500 ml IV X1 Nitroglycerin [Nitrostat 1/150] Med 05/31/25 14:26 Active 0.4 mg SL Q5MIN PRN Ondansetron Inj [Zofran Inj] Med 05/31/25 10:11 Discontinued 4 mg .ROUTE .STK-MED ONE Ondansetron Inj [Zofran Inj] Med 05/31/25 10:28 Discontinued 4 mg IVP X1 ONE Ondansetron Inj [Zofran Inj] Med 05/31/25 10:51 Discontinued 4 mg IVP X1 ONE Ondansetron Inj [Zofran Inj] Med 05/31/25 13:42 Discontinued 4 mg IVP X1 ONE Pantoprazole Inj [Protonix Inj] Med 05/31/25 14:00 Active 40 mg IVP QDAY Sodium Chloride 0.9% 1000 ml [Ns] 1,000 ml Med 05/31/25 10:52 Discontinued IV 999 mls/hr Sodium Chloride 0.9% 1000 ml [Ns] 1,000 ml Med 05/31/25 11:26 Discontinued IV 999 mls/hr cefTRIAXone/D5w 1gm IV premix [Rocephin/D5w 1gm IV Med 05/31/25 13:59 Active premix] 1 gm in 50 ml IV QDAY mg Hyd/Al Hyd/Guy Susp [Maalox Susp] Med 05/31/25 14:26 Active 30 ml PO Q4HR PRN Code Status Routine Oth 05/31/25 13:56 Ordered Oxygen Delivery PRN RT 05/31/25 13:56 Active Oxygen Delivery PRN RT 05/31/25 14:26 Active Vital Signs Vital signs: Vital Signs Pulse Rate 127 H 05/31/25 10:21 Respiratory Rate 17 05/31/25 10:21 Blood Pressure 112/66 05/31/25 10:21 Pulse Oximetry (%) 99 05/31/25 10:21 Oxygen Delivery Method Oxy Mask 05/31/25 10:21 Oxygen Flow Rate 10 05/31/25 10:21 Altered Mental Status MDM Narrative MDM Narrative:: Aleshia Alaniz am scribing for and in the presence of Dr. Cabrera. Patient data External records reviewed:: [facility] previous records (I reviewed ED visit on 04/12/2025 for miscarriage ) and EMS form Clinical information provided by:: EMS Social determinants that could affect healthcare access:: alcohol use Patient has the following chronic illnesses:: Anxiety How is presenting disease/condition affected by chronic disease/condition?: uneffected by Evaluation data The following diagnostics were reviewed and interpreted by me:: lab results, radiology exam(s) and EKG tracing(s) (05/31/2025 @ 10:41 AM. Sinus tachycardia, rate 115, normal axis, normal intervals, no acute ischemic changes, no STEMI. ) Lab and/or radiology exams considered but not ordered:: None Interpretation Summary: Ordering Physician: Augustina Cabrera MD Date of Service: 05/31/25 Procedure(s): XR chest 1V portable Accession Number(s): [id number] cc: Rambo Hernandez MD; NO PRIMARY/FAMILY,PHYSICIAN; Augustina Cabrera MD~ Examination: AP chest single view TECHNIQUE: AP portable sitting chest single view Date and time: May 31, 2025 1103 hours Comparison 07/23/2023 INDICATIONS: Chest pain today. FINDINGS: Significant bilateral perihilar pneumonia The film is rotated LPO The osseous structures are intact IMPRESSION: Significant bilateral perihilar pneumonia Dictated By: Rambo Hernandez MD Signed By: <Electronically signed by Rambo Hernandez MD in OV> 05/31/25 1149 = Ordering Physician: Augustina Cabrera MD Date of Service: 05/31/25 Procedure(s): CT head/brain wo con Accession Number(s): [id number] cc: aRmbo Hernandez MD; NO PRIMARY/FAMILY,PHYSICIAN; Augustina Cabrera MD~ Examination: CT brain head without contrast. 2-D sagittal coronal reconstructions Date and time of exam:May 31, 2025 at 1253 hours INDICATIONS: Altered mental status onset today CTDI: vol (mGy):51.8 DLP: (mGycm):1117 Technique: Multiple CT axial sections of the brain have been obtained, 5 mm slice thickness. Contrast has not been administered. 2-D sagittal, coronal reconstructions have been obtained Low dose protocols were performed. One or more of the following dose reduction techniques were used; automated exposure control, adjustment of the mA and/or KV according to patient size, use of iterative reconstruction technique. Findings: No significant ventricular enlargement. Intra-axial or extra-axial hemorrhage density is not seen. No mass effect or midline shift Basal cisterns are not remarkable. Fourth ventricle is midline. Cranial vault intact. Impression: Negative for acute hemorrhage, mass effect or midline shift Advise clinical correlation follow-up accordingly Dictated By: Rambo Hernandez MD Signed By: <Electronically signed by Rambo Hernandez MD in OV> 05/31/25 1318 Medications / Prescriptions Medications or Prescriptions considered but not ordered:: None Medication administrations:: Medication Administration History Acetaminophen (Acetaminophen 325 Mg Tablet) 650 mg PO Q4HR PRN PRN Reason: PAIN SCALE 1-3 (mild Stop: 06/30/25 13:55 Acetaminophen (Acetaminophen Supp 650 Mg Supp) 650 mg VT Q4HR PRN PRN Reason: PAIN SCALE 1-3 (mild Stop: 06/30/25 14:25 Al Hydrox/Mg Hydrox/Simethicone (Mg Hyd/Al Hyd/Guy (Maalox Reg) Susp 30 Ml Udc) 30 ml PO Q4HR PRN PRN Reason: Heartburn or Upset Stomach Stop: 06/30/25 14:25 Enoxaparin Sodium (Enoxaparin Sod Inj 40 Mg/0.4 Ml Syringe) 40 mg SC QDAY HANNAH Stop: 06/14/25 13:59 Last Admin: 05/31/25 15:16 Dose: 40 mg Documented By: ER Naloxone HCl 2 mg/ Sodium (Chloride) 502 mls @ 62.75 mls/hr IV X1 ONE Stop: 05/31/25 21:59 Last Admin: 05/31/25 14:08 Dose: 0.25 mg/hr, 62.75 mls/hr Documented By: ER Ceftriaxone Sodium/Dextrose (Rocephin/D5w 1gm Iv Premix) 1 gm in 50 mls @ 100 mls/hr IV QDAY HANNAH Stop: 06/07/25 13:58 Last Admin: 05/31/25 15:21 Dose: 100 mls/hr Documented By: ER Magnesium Sulfate (Magnesium Sulfate Ivpb) 4 gm in 50 mls @ 12.5 mls/hr IV X1 ONE Stop: 05/31/25 19:47 Last Admin: 05/31/25 16:44 Dose: 12.5 mls/hr Documented By: HR Sodium Chloride (Ns 0.45%) 1,000 mls @ 80 mls/hr IV .[id number] HANNAH Stop: 06/30/25 16:29 Last Admin: 05/31/25 16:38 Dose: 80 mls/hr Documented By: HR Magnesium Hydroxide (Milk Of Magnesia Susp 30 Ml Udc) 30 ml PO QDAY PRN PRN Reason: CONSTIPATION Stop: 06/30/25 14:25 Nitroglycerin (Nitroglycerin 0.4 Mg Subl Btl #25) 0.4 mg SL Q5MIN PRN PRN Reason: CHEST PAIN Pantoprazole Sodium (Pantoprazole Inj 40 Mg Vial) 40 mg IVP QDAY HANNAH Stop: 06/30/25 13:59 Last Admin: 05/31/25 15:18 Dose: 40 mg Documented By: ER Discontinued Medications Acetaminophen (Acetaminophen 325 Mg Tablet) 650 mg PO Q4HR PRN PRN Reason: PAIN SCALE 1-3 (mild Stop: 06/30/25 14:25 Folic Acid (Folic Acid Inj 1 Mg/0.2 Ml) 1 mg IVP X1 ONE Stop: 05/31/25 15:42 Sodium Chloride (Ns) 1,000 mls @ 999 mls/hr IV .Q1H1M ONE Stop: 05/31/25 11:52 Last Infusion: 05/31/25 11:55 Dose: Infused Documented By: Admin: 05/31/25 11:12 Dose: 999 mls/hr Documented By: ER Levofloxacin/Dextrose (Levaquin Ivpb) 500 mg in 100 mls @ 100 mls/hr IV X1 ONE Stop: 05/31/25 12:24 Last Infusion: 05/31/25 13:18 Dose: Infused Documented By: Admin: 05/31/25 12:18 Dose: 100 mls/hr Documented By: ER Sodium Chloride (Ns) 1,000 mls @ 999 mls/hr IV .Q1H1M ONE Stop: 05/31/25 12:26 Last Infusion: 05/31/25 12:54 Dose: Infused Documented By: Admin: 05/31/25 11:56 Dose: 999 mls/hr Documented By: ER Magnesium Sulfate (Magnesium Sulfate Ivpb) 2 gm in 50 mls @ 25 mls/hr IV X1 ONE Stop: 05/31/25 15:16 Last Admin: 05/31/25 14:00 Dose: 25 mls/hr Documented By: ER Lactated Ringer's (Lactated Ringers) 1,000 mls @ 125 mls/hr IV .Q8H ONE Stop: 05/31/25 23:40 Magnesium Sulfate (Magnesium Sulfate Ivpb) 2 gm in 50 mls @ 25 mls/hr IV X1 ONE Stop: 05/31/25 17:40 Dextrose/Sodium Chloride (D5-1/2ns) 1,000 mls @ 80 mls/min IV .Q13M HANNAH Stop: 06/30/25 15:49 Last Admin: 05/31/25 16:34 Dose: Not Given Documented By: HR Non-Admin Reason: Discontinued Admin: 05/31/25 16:28 Dose: Not Given Documented By: HR Non-Admin Reason: Change of Condition Admin: 05/31/25 16:28 Dose: Not Given Documented By: HR Non-Admin Reason: Change of Condition Naloxone HCl (Naloxone Inj 1 Mg/Ml Syringe 2 Ml) 0.8301 mg IV X1 ONE Stop: 05/31/25 13:43 Last Admin: 05/31/25 13:52 Dose: Not Given Documented By: ER Non-Admin Reason: wrong dose Naloxone HCl (Naloxone Inj 1 Mg/Ml Syringe 2 Ml) 0.5 mg IV X1 ONE Stop: 05/31/25 10:20 Last Admin: 05/31/25 10:19 Dose: 0.5 mg Documented By: ER Naloxone HCl (Naloxone Inj 1 Mg/Ml Syringe 2 Ml) 0.5 mg IV X1 ONE Stop: 05/31/25 10:26 Last Admin: 05/31/25 10:25 Dose: 0.5 mg Documented By: ER Naloxone HCl (Naloxone Inj 1 Mg/Ml Syringe 2 Ml) 1 mg IV X1 ONE Stop: 05/31/25 10:30 Last Admin: 05/31/25 10:29 Dose: 1 mg Documented By: ER Naloxone HCl (Naloxone Inj 1 Mg/Ml Syringe 2 Ml) 1 mg IV X1 ONE Stop: 05/31/25 13:41 Last Admin: 05/31/25 13:40 Dose: 1 mg Documented By: ER Ondansetron HCl (Ondansetron Inj 2 Mg/Ml Inj 2 Ml) Confirm Administered Dose 4 mg .ROUTE .STK-MED ONE Stop: 05/31/25 10:12 Last Admin: 05/31/25 10:33 Dose: Not Given Documented By: ER Non-Admin Reason: Duplicate Medication on eMAR Ondansetron HCl (Ondansetron Inj 2 Mg/Ml Inj 2 Ml) 4 mg IVP X1 ONE; Protocol Stop: 05/31/25 10:29 Last Admin: 05/31/25 10:20 Dose: 4 mg Documented By: ER Ondansetron HCl (Ondansetron Inj 2 Mg/Ml Inj 2 Ml) 4 mg IVP X1 ONE Stop: 05/31/25 10:52 Last Admin: 05/31/25 11:12 Dose: 4 mg Documented By: ER Ondansetron HCl (Ondansetron Inj 2 Mg/Ml Inj 2 Ml) 4 mg IVP X1 ONE; Protocol Stop: 05/31/25 13:43 Last Admin: 05/31/25 13:51 Dose: 4 mg Documented By: ER Thiamine HCl (Thiamine Inj 100 Mg/Ml Vial 2 Ml) 100 mg IVP X1 ONE Stop: 05/31/25 15:42 Thiamine HCl (Thiamine Inj 100 Mg/Ml Vial 2 Ml) 100 mg IVP X1 ONE Stop: 05/31/25 15:48 Last Admin: 05/31/25 16:46 Dose: 100 mg Documented By: HR See above Consultations Consultation(s) initiated? (list below): Yes Consultation #1 (Physician, Specialty, Details): I spoke with tax record clerk Dr. Capellan. Discussed patients PMHx, HPI, ED course, exam findings, labs, and radiology results. Patient accepted for admission to ICU. Time: 13:45 Diagnosis Most likely diagnosis given after review of the tests above:: Overdose Respiratory arrest Elevated troponin Admission Indicated Admission indicated?: indicated Admission Request Was there a request for admission?: Yes Admission Attestation Admission request attestation: Discussed case with [] from Hospitalist service regarding admission. Discussed patients ED course, exam findings, labs, and radiology results. The Hospitalist [agrees,declines] to accept the patient for admission. Disposition Plan Disposition Plan: Admit Critical Care Time Critical Care Time Critical Care Time: Yes Total Critical Care Time (min.): 60 Attestation: The high probability of sudden, clinically significant deterioration in the patient's condition required the highest level of my preparedness to intervene urgently. The services I provided to this patient were to treat and/or prevent clinically significant deterioration. Services included the following: chart data review, reviewing nursing notes and/or old charts, documentation time, disaster recovery consultant collaboration regarding findings and treatment options, medication orders and management, direct patient care, vital sign assessments and ordering, interpreting and reviewing diagnostic studies and lab tests. Aggregate critical care time includes only time during which I was engaged in work directly related to the patient's care, as described above, whether at bedside or elsewhere in the Emergency Department. It did not include time spent performing other reported procedures or the services of residents, students, nurses or physician assistants. Discharge Plan Plan Patient Disposition: Admit Acute Care w/in Hospital Problem List Clinical Impression: Overdose, Respiratory arrest, Elevated troponin
[2025-05-31] MEDS: SODIUM CHLORIDE 0.9% 1000 ML 1,000 ML 999 ML IV ×2 (11:12→11:56)
--- NOTE | 2025-05-31 11:27 | XR_ITS ---
Examination: CT brain head without contrast. 2-D sagittal coronal reconstructions Date and time of exam:May 31, 2025 at 1253 hours INDICATIONS: Altered mental status onset today CTDI: vol (mGy):51.8 DLP: (mGycm):1117 Technique: Multiple CT axial sections of the brain have been obtained, 5 mm slice thickness. Contrast has not been administered. 2-D sagittal, coronal reconstructions have been obtained Low dose protocols were performed. One or more of the following dose reduction techniques were used; automated exposure control, adjustment of the mA and/or KV according to patient size, use of iterative reconstruction technique. Findings: No significant ventricular enlargement. Intra-axial or extra-axial hemorrhage density is not seen. No mass effect or midline shift Basal cisterns are not remarkable. Fourth ventricle is midline. Cranial vault intact. Impression: Negative for acute hemorrhage, mass effect or midline shift Advise clinical correlation follow-up accordingly
[2025-05-31 11:38] LABS: Collection Type, Urine Catheter; RBC,Urine 0 /hpf (0-3)
[2025-05-31 11:52] LABS: Lactate (Lactic Acid) 2.8 mMol/L (0.4-2.0)
[2025-05-31 11:53] LABS: Basophils # (Auto) 0.0 Thou/mm3 (0.0-0.2); Basophils % (Auto) 0 % (0-2.5); Eosinophils # (Auto) 0.0 Thou/mm3 (0.0-0.5); Eosinophils % (Auto) 0 % (0-10); Hematocrit 39.2 % (36.0-46.0); Hemoglobin 11.8 g/dL (12.0-16.0); Immature Granulocytes Auto 0.16 Thou/mm3 (0.00-0.00); Lymphocytes # (Auto) 0.7 Thou/mm3 (1.0-4.8); Lymphocytes % (Auto) 6 % (10-50); Mean Corpuscular HGB Conc 30.1 g/dl (31.0-37.0); Mean Corpuscular Hemoglobin 28.6 pg (25.0-35.0); Mean Corpuscular Volume 95 fL (80-100); Monocytes # (Auto) 1.4 Thou/mm3 (0.0-0.8); Monocytes % (Auto) 13 % (0-12); Neutrophils # (Auto) 8.7 Thou/mm3 (1.8-7.7); Neutrophils % (Auto) 79 % (37-80); Nucleated Red Blood Cell # 0.02 Thou/mm3 (0.00-0.00); Nucleated Red Blood Cell % 0 /100 WBC (0); Platelet Count 180 Thou/mm3 (140-440); RDW Standard Deviation 46.7 fL (36.4-46.3); Red Blood Count 4.12 Miln/mm3 (4.00-5.20); White Blood Count 11.0 Thou/mm3 (3.6-11.0)
[2025-05-31 12:11] LABS: Ammonia 31 uMol/L (11-32); B-Type Natriuretic Peptide 273 pg/mL (0-100)
[2025-05-31 12:16] LABS: Bilirubin,Urine Negative (Negative); Blood,Urine Trace (Negative); Color,Urine Lt-Yellow (Lt Yel-Yel); Culture Indicated,Urine Not Indicated; Glucose, Urine Negative (Negative); Granular Casts,Urine 1 /hpf (0-1); Ketones,Urine Negative (Negative); Leukocyte Esterase,Urine Negative (Negative); Nitrite,Urine Negative (Negative); PH,Urine 6.5 (5.0-7.0); Protein,Urine Trace (Neg - Trace); Specific Gravity,Urine 1.009 (1.001-1.035); Squamous Epithelial Cell,Urine 3 /hpf (0-5); Urobilinogen,Urine Negative mg/dL (0.0-1.0); WBC,Urine 6 /hpf (0-5)
[2025-05-31] MEDS: LEVOFLOXACIN/D5W 500 MG IVPB 500 MG/100 ML BAG 100 MG IV (12:18)
[2025-05-31 12:19] LABS: Alanine Aminotransferase 72 U/L (10-49); Albumin, Serum 4.0 gm/dL (3.5-5.0); Albumin/Globulin Ratio 1.8 (1.2-2.2); Alcohol, Blood Medical < 3.0 mg/dL (0-10.0); Alkaline Phosphatase 41 U/L (46-116); Anion Gap 12 (7-16); Aspartate Amino Transferase 68 U/L (0-34); BUN/Creatinine Ratio 11 Ratio (12-20); Bilirubin,Total 0.3 mg/dL (0.3-1.2); Blood Urea Nitrogen 15 mg/dL (9-23); Calcium 8.6 mg/dL (8.3-10.6); Calcium (Corrected) 8.6 mg/dL (8.5-10.1); Carbon Dioxide 22.9 mMol/L (20.0-31.0); Chloride 116 mMol/L (98-107); Creatinine (Component) 1.4 mg/dL (0.6-1.3); Estimated Creatinine Clearance 65.0 mL/min (>60); Globulin 2.2 gm/dL (2.3-3.5); Glucose 69 mg/dL (74-106); Osmolality,Calculated 298 (275-295); Potassium 4.0 mMol/L (3.4-5.1); Procalcitonin 2.25 ng/ml (0.0-0.49); Sodium 151 mMol/L (136-145); Total Protein 6.2 gm/dL (5.7-8.2); eGFR 53 See Note
[2025-05-31 12:24] LABS: Clarity,Urine Hazy (Clear/Hazy)
[2025-05-31 12:35] LABS: Lipase < 8 U/L (12-53); Magnesium 1.2 mg/dL (1.6-2.6)
[2025-05-31 12:39] LABS: Troponin I 1.925 ng/mL (0.0-0.045)
[2025-05-31 12:52] LABS: Amphetamine/Methamp Scrn,U Negative (Negative); Barbiturate Screen,Urine Negative (Negative); Benzodiazepines Screen,Urine Positive (Negative); Benzoylecgonine Screen, Ur Negative (Negative); Fentanyl Screen,Urine Positive (Negative); Opiate Screen,Urine Negative (Negative); THC Screen,Urine Positive (Negative)
[2025-05-31 13:25] LABS: Base Excess -5 (-3-3); HCO3 23 mEq/L (20-26); Inspired O2, VO2 Liters 7 L/min; O2 Saturation 97 % (91-98); PCO2 54 mmHg (32.0-48.0); PO2 86 mmHg (83-108); pH, Arterial 7.24 (7.35-7.45)
--- NOTE | 2025-05-31 13:28 | EKG_ITS ---
[facility] Test Date: 2025-05-31 Pat Name: HILDA ROMAN Department: Room: - Gender: Female Special Population Paraprofessional: RTSJC : 1995 Requested By: Augustina Ross Order Number: [id number] Reading MD: Augustina Ross Measurements Intervals [place] Rate: 110 P: 28 [place]: 162 QRS: 9 QRSD: 90 T: 12 QT: 331 QTc: 450 Interpretive Statements SINUS TACHYCARDIA ABNORMAL RHYTHM ECG Compared to ECG 05/31/2025 10:41:58 No significant changes /store/S0/[id number]
[2025-05-31 13:29] LABS: Allen Test Not Performed; Puncture Site Right Radial
[2025-05-31] MEDS: Magnesium Sulfate 2 GM Ivpb 2 GM/50 ML BAG IV (14:00)
[2025-05-31] MEDS: NALOXONE IV ×2 (14:08→22:27)
[2025-05-31] MEDS: SODIUM CHLORIDE 0.9% IV ×2 (14:08→22:27)
--- NOTE | 2025-05-31 14:26 | XR_ITS ---
Examination: AP chest single view Technique : AP portable semiupright chest single view Date and time: May 31, 2025 1438 hours INDICATIONS: Fever coughing this week. FINDINGS: Significant bilateral pneumonia. Normal heart size Reduced inspiratory effort IMPRESSION: Significant bilateral pneumonia
[2025-05-31 14:48] LABS: Reflex Lactate? Y
[2025-05-31] MEDS: ENOXAPARIN SOD INJ 40 MG/0.4 ML SYRINGE SC (15:16)
[2025-05-31 15:18] LABS: Lactic Acid, 3 HR 3.3 mMol/L (0.4-2.0)
[2025-05-31] MEDS: cefTRIAXone/D5w 1gm IV premix 1 GM/50 ML BAG IV (15:21)
--- NOTE | 2025-05-31 16:15 | ESHP_ITS ---
<Statement entered by Alejandro Capellan MD - 06/01/25 08:15> TOTAL CC TIME: 45 MIN I saw and evaluated the patient. I reviewed the resident?s note and agree with findings and plan as documented in the resident?s note. Upon my evaluation, this patient had a high probability of imminent or life- threatening deterioration due to Mel illicit drug abuse with overdose, aspiration pneumonia with acute hypoxic respiratory failure which required my direct attention, intervention, and personal management. Seen and examined in the emergency room. Received total of 4 mg Narcan between EMS and emergency department course; appropriately started on Narcan drip. Empiric antibiotics for aspiration pneumonia, maintain current management with close monitoring in ICU. Documentation for date of: 05/31/25 HPI History of Present Illness Chief complaint: Altered sensorium History of present illness: Patient is drowsy and is responding to questions with nodding her head but not able to provide any history. So most of the history was taken from chart review. A 29-year-old female with significant past medical history of anxiety, chronic alcohol abuse, chronic marijuana use, remote chronic cocaine abuse, ?miscarriage, 1 elective , miscarriage in 03/2025 underwent dilatation and curettage was brought to the hospital with a chief complaints of altered sensorium since this morning. Per patient's boyfriend, patient was drinking throughout the day yesterday evening at her mother's house and not sure if she took any other drugs at that place. He picked her later in the evening and went together to a bar and had couple more drinks and later in the night she took 1 more dose of lorazepam and went back to sleep. On the morning of day of admission, the boyfriend is not able to wake her up from the sleep for which he brought her to the emergency department. Denies fever, nausea, vomiting, burning micturition, recent sick contacts, shortness of breath, cough. Patient was given a dose of Narcan while she was brought to the ED in the ambulance. In the ED, patient was noted to have an episode of emesis with blood tinge. ED course: - Vitals at the time of admission are stable except for sinus tachycardia and patient is saturating around 99% with 10 L of oxygen through oxy mask - Labs at the time of admission significant for hemoglobin 11.8, platelets 180, sodium 151, chloride 116, creatinine 1.4, glucose 69, lactate 2.8, magnesium 1.2, AST 68, ALT 72, ALP 41, troponin 1.95, procalcitonin 2.25. - ABG showed pH 7.24, [id number], oxygen saturation 97% - Urine analysis is unremarkable except for 6 WBC - Urine toxicology tested positive for fentanyl, benzodiazepines, marijuana. Ethyl alcohol in the blood is less than 3. - EKG at the time of admission showed sinus tachycardia with no ST and T wave changes. Chest x-ray showed significant infiltrates in right perihilar area - Head CT is negative for acute hemorrhage, mass effect or midline shift. - In the ED, patient received 2 doses of 0.5 mg Narcan, 2 doses of 1 mg Narcan. As patient is responding to Narcan and urine toxicology tested positive for fentanyl, patient was started on Narcan drip. 2 L of NS bolus is given in the ED. A dose of levofloxacin 500 mg, 2 g of magnesium, a dose of ondansetron is given Past medical history: Chronic alcohol abuse, chronic marijuana use, remote cocaine abuse Past surgical history: 1 elective , recent miscarriage in March 2025 Social history: Lives with her boyfriend. Chronic alcohol and marijuana use Allergies: NKDA Review of Systems Review of Systems ROS Unobtainable: unobtainable due to mental status Past Medical History Past Medical History NEUROLOGIC: Negative Seizures CARDIAC: Negative Cardiac Disorders or Congestive Heart Failure RESPIRATORY: Negative Chronic Obstructive Pulmonary Disease (COPD) or Asthma GENITOURINARY: Negative Renal Disease ENDOCRINE: Negative Diabetes Mellitus Type 1 or Diabetes Mellitus Type 2 HEMATOLOGIC: Negative Sickle Cell Disease OTHER HISTORY: Negative Blood Transfusions, Blood Transfusion Reaction or Anesthesia Reactions Social History SMOKING STATUS: Unknown if ever smoked SECOND HAND EXPOSURE: No SUBSTANCE USE: crack/cocaine Exam Vital Signs Temp Pulse Resp BP Pulse Ox O2 Del Method O2 Flow Rate 98.9 F 109 H 21 H 127/75 97 Oxy Mask 7 05/31/25 11:01 05/31/25 15:39 05/31/25 15:39 05/31/25 15:30 05/31/25 15:39 05/31/25 15:30 05/31/25 15:39 Narrative Exam General: Stuporous. Responding to simple verbal commands. not able to maintain a conversation HEENT: Normocephalic, atraumatic, mucous membranes moist. Heart: Sinus tachycardia, no murmurs. Lungs: Clear to auscultation with no wheezing or crackles. Abdomen: Soft, nondistended, nontender, positive bowel sounds. ?No guarding or rebound tenderness. Neurologic: Stuporous. Responding to simple verbal commands. not able to maintain a conversation. no gross neurological deficit, and patient able to move all 4 extremities. Extremities: No edema. Skin: No rash or ecchymoses. Results: Labs 05/31/25 11:42 05/31/25 17:35 Labs: Short CBC 05/31/25 Range/Units 11:42 WBC 11.0 (3.6-11.0) Thou/mm3 Hgb 11.8 L (12.0-16.0) g/dL Hct 39.2 (36.0-46.0) % Plt Count 180 (140-440) Thou/mm3 BMP 05/31/25 11:42 Sodium 151 H Potassium 4.0 Chloride 116 H Carbon Dioxide 22.9 BUN 15 Creatinine 1.4 H Glucose 69 L Calcium 8.6 Cardiac Enzymes 05/31/25 Range/Units 11:42 Troponin I 1.925 H* (0.0-0.045) ng/mL Liver Function 05/31/25 Range/Units 11:42 Total Bilirubin 0.3 (0.3-1.2) mg/dL AST 68 H (0-34) U/L ALT 72 H (10-49) U/L Alkaline Phosphatase 41 L (46-116) U/L Albumin 4.0 (3.5-5.0) gm/dL Urine 05/31/25 Range/Units 11:24 Urine Color Lt-Yellow (Lt Yel-Yel) Urine Clarity Hazy (Clear/Hazy) Urine pH 6.5 (5.0-7.0) Ur Specific [place] 1.009 (1.001-1.035) Urine Protein Trace (Neg - Trace) Urine Glucose (UA) Negative (Negative) ABG Interpretation ABG results: 05/31/25 13:22 ABG pH 7.24 L ABG pCO2 54 H ABG pO2 86 ABG HCO3 23 ABG O2 Saturation 97 ABG Base Excess -5 L Quality Measures Quality Measures none Medications Home Medications and Allergies Allergies Allergy/AdvReac Type Severity Reaction Status Date / Time No Known Allergies Allergy Verified 04/20/25 10:08 Visit Medications Acetaminophen (Acetaminophen 325 Mg Tablet) 650 mg PO Q4HR PRN PRN Reason: PAIN SCALE 1-3 (mild Stop: 06/30/25 13:55 Acetaminophen (Acetaminophen Supp 650 Mg Supp) 650 mg NE Q4HR PRN PRN Reason: PAIN SCALE 1-3 (mild Stop: 06/30/25 14:25 Al Hydrox/Mg Hydrox/Simethicone (Mg Hyd/Al Hyd/Guy (Maalox Reg) Susp 30 Ml Udc) 30 ml PO Q4HR PRN PRN Reason: Heartburn or Upset Stomach Stop: 06/30/25 14:25 Enoxaparin Sodium (Enoxaparin Sod Inj 40 Mg/0.4 Ml Syringe) 40 mg SC QDAY [facility] Stop: 06/14/25 13:59 Last Admin: 05/31/25 15:16 Dose: 40 mg Naloxone HCl 2 mg/ Sodium (Chloride) 502 mls @ 62.75 mls/hr IV X1 ONE Stop: 05/31/25 21:59 Last Admin: 05/31/25 14:08 Dose: 0.25 mg/hr, 62.75 mls/hr Ceftriaxone Sodium/Dextrose (Rocephin/D5w 1gm Iv Premix) 1 gm in 50 mls @ 100 mls/hr IV QDAY [facility] Stop: 06/07/25 13:58 Last Admin: 05/31/25 15:21 Dose: 100 mls/hr Magnesium Sulfate (Magnesium Sulfate Ivpb) 4 gm in 50 mls @ 12.5 mls/hr IV X1 ONE Stop: 05/31/25 19:47 Dextrose/Sodium Chloride (D5-1/2ns) 1,000 mls @ 80 mls/min IV .Q13M [facility] Stop: 06/30/25 15:49 Magnesium Hydroxide (Milk Of Magnesia Susp 30 Ml Udc) 30 ml PO QDAY PRN PRN Reason: CONSTIPATION Stop: 06/30/25 14:25 Nitroglycerin (Nitroglycerin 0.4 Mg Subl Btl #25) 0.4 mg SL Q5MIN PRN PRN Reason: CHEST PAIN Pantoprazole Sodium (Pantoprazole Inj 40 Mg Vial) 40 mg IVP QDAY [facility] Stop: 06/30/25 13:59 Last Admin: 05/31/25 15:18 Dose: 40 mg Discontinued Medications Acetaminophen (Acetaminophen 325 Mg Tablet) 650 mg PO Q4HR PRN PRN Reason: PAIN SCALE 1-3 (mild Stop: 06/30/25 14:25 Folic Acid (Folic Acid Inj 1 Mg/0.2 Ml) 1 mg IVP X1 ONE Stop: 05/31/25 15:42 Sodium Chloride (Ns) 1,000 mls @ 999 mls/hr IV .Q1H1M ONE Stop: 05/31/25 11:52 Last Infusion: 05/31/25 11:55 Dose: Infused Levofloxacin/Dextrose (Levaquin Ivpb) 500 mg in 100 mls @ 100 mls/hr IV X1 ONE Stop: 05/31/25 12:24 Last Infusion: 05/31/25 13:18 Dose: Infused Sodium Chloride (Ns) 1,000 mls @ 999 mls/hr IV .Q1H1M ONE Stop: 05/31/25 12:26 Last Infusion: 05/31/25 12:54 Dose: Infused Magnesium Sulfate (Magnesium Sulfate Ivpb) 2 gm in 50 mls @ 25 mls/hr IV X1 ONE Stop: 05/31/25 15:16 Last Admin: 05/31/25 14:00 Dose: 25 mls/hr Lactated Ringer's (Lactated Ringers) 1,000 mls @ 125 mls/hr IV .Q8H ONE Stop: 05/31/25 23:40 Magnesium Sulfate (Magnesium Sulfate Ivpb) 2 gm in 50 mls @ 25 mls/hr IV X1 ONE Stop: 05/31/25 17:40 Naloxone HCl (Naloxone Inj 1 Mg/Ml Syringe 2 Ml) 0.8301 mg IV X1 ONE Stop: 05/31/25 13:43 Last Admin: 05/31/25 13:52 Dose: Not Given Naloxone HCl (Naloxone Inj 1 Mg/Ml Syringe 2 Ml) 0.5 mg IV X1 ONE Stop: 05/31/25 10:20 Last Admin: 05/31/25 10:19 Dose: 0.5 mg Naloxone HCl (Naloxone Inj 1 Mg/Ml Syringe 2 Ml) 0.5 mg IV X1 ONE Stop: 05/31/25 10:26 Last Admin: 05/31/25 10:25 Dose: 0.5 mg Naloxone HCl (Naloxone Inj 1 Mg/Ml Syringe 2 Ml) 1 mg IV X1 ONE Stop: 05/31/25 10:30 Last Admin: 05/31/25 10:29 Dose: 1 mg Naloxone HCl (Naloxone Inj 1 Mg/Ml Syringe 2 Ml) 1 mg IV X1 ONE Stop: 05/31/25 13:41 Last Admin: 05/31/25 13:40 Dose: 1 mg Ondansetron HCl (Ondansetron Inj 2 Mg/Ml Inj 2 Ml) 4 mg IVP X1 ONE; Protocol Stop: 05/31/25 10:29 Last Admin: 05/31/25 10:20 Dose: 4 mg Ondansetron HCl (Ondansetron Inj 2 Mg/Ml Inj 2 Ml) 4 mg IVP X1 ONE Stop: 05/31/25 10:52 Last Admin: 05/31/25 11:12 Dose: 4 mg Ondansetron HCl (Ondansetron Inj 2 Mg/Ml Inj 2 Ml) 4 mg IVP X1 ONE; Protocol Stop: 05/31/25 13:43 Last Admin: 05/31/25 13:51 Dose: 4 mg Thiamine HCl (Thiamine Inj 100 Mg/Ml Vial 2 Ml) 100 mg IVP X1 ONE Stop: 05/31/25 15:42 Thiamine HCl (Thiamine Inj 100 Mg/Ml Vial 2 Ml) 100 mg IVP X1 ONE Stop: 05/31/25 15:48 Assessment & Plan Plan Patient is drowsy and is responding to questions with nodding her head but not able to provide any history. So most of the history was taken from chart review. A 29-year-old female with significant past medical history of anxiety, chronic alcohol abuse, chronic marijuana use, remote chronic cocaine abuse, ?miscarriage, 1 elective , miscarriage in 03/2025 underwent dilatation and curettage was brought to the hospital with a chief complaints of altered sensorium since this morning. Per patient's boyfriend, patient was drinking throughout the day yesterday evening at her mother's house and not sure if she took any other drugs at that place. He picked her later in the evening and went together to a bar and had couple more drinks and later in the night she took 1 more dose of lorazepam and went back to sleep. On the morning of day of admission, the boyfriend is not able to wake her up from the sleep for which he brought her to the emergency department. Denies fever, nausea, vomiting, burning micturition, recent sick contacts, shortness of breath, cough. Patient was given a dose of Narcan while she was brought to the ED in the ambulance. In the ED, patient was noted to have an episode of emesis with blood tinge. 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 Diagnostic test: - Urine toxicology tested positive for fentanyl, benzodiazepine, marijuana - Head CT done showed no acute hemorrhage, midline affect, mass - Patient was given multiple doses of Narcan and found to responsive to those doses Treatment: - Patient was started on Narcan drip, will monitor symptoms and if she is doing well, will discontinue drip later in the day - Will monitor symptoms for alcohol withdrawal and will start on CIWA protocol # History of anxiety - Per boyfriend, she had history of anxiety and is taking lorazepam for it - Will hold home medication for now CVS # Sinus tachycardia - Patient is found to have heart rate around 100 to 110 bpm - Likely in the setting of alcohol withdrawal Diagnostic test: - EKG done on the day of admission showed normal sinus rhythm with tachycardia, no ST-T wave changes Treatment: - Repleted with 2 L of NS and was started on fluids - Will start on CIWA protocol # Elevated troponins, likely NSTEMI type II - Elevated likely in the setting of acute drug abuse - EKG done at the time of admission showed no ST-T wave changes Treatment: - Will trend troponins and continuous telemetry monitoring RS # Aspiration pneumonia - At the time of presentation, patient was found to have low oxygen saturation and was started on OxyMask -She was a chronic alcoholic and had alcohol abuse yesterday and also took some drugs following which she was unconscious for prolonged time which could be contributing to the aspiration Diagnostic test: - Chest x-ray at the time of admission showed infiltrates in the right perihilar area Treatment: - Started on Unasyn 3 g every 6 hourly - Will continue noninvasive mechanical ventilation, oxygen as of now - Sputum cultures were sent - Will continue to monitor oxygen saturation # Respiratory acidosis - Patient is altered at the time of presentation and patient positive for fentanyl - Likely having respiratory depression from the alcohol and fentanyl, benzodiazepine Diagnostic test - Tested positive for marijuana, fentanyl, benzodiazepine - ABG showed pH 7.24, PCO2 54 Treatment: - Started on Narcan drip - Will monitor pCO2 GI # Nausea and vomiting - Patient had 1 episode of emesis with blood tinge - Likely in the setting of gastritis from drug abuse Treatment: - Started on IV pantoprazole 40 Mg daily # Mild transaminitis # Chronic alcohol abuse - Patient had history of alcohol abuse and mild liver disease Diagnostic test: - Labs showed AST 68, ALT 72 Treatment: - Will continue to monitor liver function for now - professional services consultant were consulted # History of liver nodule - Per boyfriend, patient had some mass in the liver which was diagnosed couple of years ago, likelt Focal nodular hyperplasia - Per chart review patient had right lobe liver lesion around 3 x 2 cm since 2019 which is stable since then. Treatment: - Recommend to follow-up on outpatient basis Renal # IRENA, likely prerenal - Patient had decreased oral intake and is on alcohol throughout the day - Likely dehydration, causing the prerenal acute kidney injury Diagnostic test: - Baseline creatinine is 0.5, creatinine at the time of admission is 1.4 Treatment: - Patient received 2 L of bolus in the ED - Started on IV fluids - Urine electrolytes were sent - Will continue to monitor renal functions, urine output # Hypernatremia -Sodium at the time of admission is 151 - Likely due to the dehydration and poor oral intake Treatment: - Patient received 2 L of bolus in the ED - Started on half NS at 80 mL/h based on the free water deficit - Will continue to monitor sodium and manage accordingly # Lactic acidosis - Likely in the setting of dehydration from poor oral intake - Lactate at the time of admission is 2.8 - Repeat lactate uptrending to 3.3 and patient was started on IV fluids - Will continue to monitor lactate and treat accordingly #Hypomagnesemia - Magnesium at the time of admission is 1.2 - 2 g of magnesium sulfate is given in the ED Treatment: - 4 g of magnesium sulfate is given through IV - Will repeat magnesium levels and replete as needed Endocrinology No active problems Infectious disease # Aspiration pneumonia -look in the respiratory system Hematology # Normocytic normochromic anemia - Hemoglobin at the time of admission is 11.8, likely nutritional in the setting of alcohol abuse Treatment: - Will continue to monitor CBC as hemoglobin is stable for now - Recommended to follow-up on outpatient basis for further evaluation Hospital Maintenance: Dispo: ICU DVT ppx: Loveox GI ppx: Protonix Diet: NPO except ice chips, will order bedside swallow later once patient is more awake IV lines: Peripheral Code status: Full Patient plan of care was discussed with 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 Marilia Loving, PGY2
[2025-05-31] MEDS: SODIUM CHLORIDE 0.45 % 1,000 ML 80 ML IV (16:38)
[2025-05-31] MEDS: Magnesium Sulfate 4 GM Ivpb 4 GM/50 ML BAG IV (16:44)
[2025-05-31] MEDS: THIAMINE INJ 100 MG/ML VIAL 2 ML IVP (16:46)
[2025-05-31 18:28] LABS: Albumin, Serum 4.2 gm/dL (3.5-5.0); Anion Gap 15 (7-16); BUN/Creatinine Ratio 15 Ratio (12-20); Blood Urea Nitrogen 17 mg/dL (9-23); Calcium 8.2 mg/dL (8.3-10.6); Calcium (Corrected) 8.2 mg/dL (8.5-10.1); Carbon Dioxide 21.0 mMol/L (20.0-31.0); Chloride 113 mMol/L (98-107); Creatinine (Component) 1.1 mg/dL (0.6-1.3); Estimated Creatinine Clearance 82.7 mL/min (>60); Glucose 118 mg/dL (74-106); Osmolality,Calculated 298 (275-295); Phosphorous 3.9 mg/dL (2.4-5.1); Potassium 3.6 mMol/L (3.4-5.1); Sodium 149 mMol/L (136-145); eGFR > 60 See Note
[2025-05-31 18:30] LABS: Troponin I 2.356 ng/mL (0.0-0.045)
[2025-05-31] MEDS: POTASSIUM CHL 10 mEq IVPB 10 MEQ/100 ML BAG 100 MEQ IV ×4 (18:44→21:55)
[2025-05-31] MEDS: AMPICILLIN/SULBAC INJ 3 GM in SODIUM CHLORIDE 0.9% (POP) 100 ML IV (18:46)
--- NOTE | 2025-05-31 19:26 | EKG_ITS ---
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
[2025-05-31 20:16] LABS: Magnesium 3.3 mg/dL (1.6-2.6); Potassium 4.1 mMol/L (3.4-5.1)
[2025-05-31 21:52] LABS: Lactate (Lactic Acid) 4.1 mMol/L (0.4-2.0)
[2025-05-31] MEDS: RINGERS LACTATED 1000 ML 1,000 ML 999 ML IV (22:09)
[2025-05-31 22:37] LABS: Sodium 146 mMol/L (136-145)
[2025-05-31 22:40] LABS: Troponin I 2.424 ng/mL (0.0-0.045)
[2025-06-01] VITALS (24 sets, daily range): BP systolic 94–166; BP diastolic 65–108; PULSE 78–108; RESP 10–96; TEMP 36.1–37.2; O2SAT 79–100; BMI 29.0
[2025-06-01 00:34] LABS: Reflex Lactate? Y
[2025-06-01] MEDS: AMPICILLIN/SULBAC INJ 3 GM in SODIUM CHLORIDE 0.9% (POP) 100 ML IV ×2 (00:46→05:59)
[2025-06-01 01:13] LABS: Lactate (Lactic Acid) 3.2 mMol/L (0.4-2.0)
[2025-06-01] MEDS: ONDANSETRON INJ 2 MG/ML INJ 2 ML 4 MG IVP ×3 (03:07→20:18)
[2025-06-01] MEDS: RINGERS LACTATED 500 ML 500 ML 999 ML IV (03:08)
--- NOTE | 2025-06-01 03:12 | PC.RT ---
Sputum culture collected and sent to lab for analysis.
[2025-06-01 04:11] LABS: Reflex Lactate? Y
[2025-06-01 05:27] LABS: Lactate (Lactic Acid) 1.8 mMol/L (0.4-2.0)
[2025-06-01 05:41] LABS: Basophils # (Auto) 0.1 Thou/mm3 (0.0-0.2); Basophils % (Auto) 0 % (0-2.5); Eosinophils # (Auto) 0.0 Thou/mm3 (0.0-0.5); Eosinophils % (Auto) 0 % (0-10); Hematocrit 32.6 % (36.0-46.0); Hemoglobin 10.1 g/dL (12.0-16.0); Immature Granulocytes Auto 0.12 Thou/mm3 (0.00-0.00); Lymphocytes # (Auto) 1.4 Thou/mm3 (1.0-4.8); Lymphocytes % (Auto) 7 % (10-50); Mean Corpuscular HGB Conc 31.0 g/dl (31.0-37.0); Mean Corpuscular Hemoglobin 28.9 pg (25.0-35.0); Mean Corpuscular Volume 93 fL (80-100); Monocytes # (Auto) 2.3 Thou/mm3 (0.0-0.8); Monocytes % (Auto) 11 % (0-12); Neutrophils # (Auto) 17.6 Thou/mm3 (1.8-7.7); Neutrophils % (Auto) 82 % (37-80); Nucleated Red Blood Cell # 0.00 Thou/mm3 (0.00-0.00); Nucleated Red Blood Cell % 0 /100 WBC (0); Platelet Count 147 Thou/mm3 (140-440); RDW Standard Deviation 46.4 fL (36.4-46.3); Red Blood Count 3.49 Miln/mm3 (4.00-5.20); White Blood Count 21.5 Thou/mm3 (3.6-11.0)
[2025-06-01] MEDS: SODIUM CHLORIDE 0.45 % 1,000 ML 80 ML IV (05:58)
[2025-06-01 06:34] LABS: Alanine Aminotransferase 54 U/L (10-49); Albumin, Serum 3.6 gm/dL (3.5-5.0); Albumin/Globulin Ratio 1.8 (1.2-2.2); Alkaline Phosphatase 32 U/L (46-116); Anion Gap 7 (7-16); Aspartate Amino Transferase 46 U/L (0-34); BUN/Creatinine Ratio 15 Ratio (12-20); Bilirubin,Total 0.5 mg/dL (0.3-1.2); Blood Urea Nitrogen 9 mg/dL (9-23); Calcium 7.6 mg/dL (8.3-10.6); Calcium (Corrected) 7.9 mg/dL (8.5-10.1); Carbon Dioxide 24.6 mMol/L (20.0-31.0); Chloride 109 mMol/L (98-107); Creatinine (Component) 0.6 mg/dL (0.6-1.3); Estimated Creatinine Clearance 150.6 mL/min (>60); Globulin 2.0 gm/dL (2.3-3.5); Glucose 108 mg/dL (74-106); Osmolality,Calculated 280 (275-295); Potassium 4.6 mMol/L (3.4-5.1); Sodium 141 mMol/L (136-145); Total Protein 5.6 gm/dL (5.7-8.2); eGFR > 60 See Note
[2025-06-01 06:41] LABS: Troponin I 1.226 ng/mL (0.0-0.045)
[2025-06-01 07:16] LABS: Chloride,Urine Random 128.0 mMol/L (55.0-125.0); Creatinine,Random Urine 36 mg/dL (30-125); Potassium,Urine Random 35 mMol/L (12-62); Sodium,Urine Random 146.0 mMol/L (20.0-110.0)
--- NOTE | 2025-06-01 07:26 | XR_ITS ---
Examination: AP chest single view Technique one AP portable semiupright chest single view Date and time: June 01, 2025 0828 hours Comparison May 31, 2025 INDICATIONS: Drug overdose history with aspiration FINDINGS: Bilateral perihilar pneumonia remains, unchanged compared to the more penetrated than technique Stable cardiac contour The osseous structures are intact IMPRESSION: Significant bilateral perihilar pneumonia remains
[2025-06-01 08:00] LABS: Band Neutrophils (Manual) 13 % (0-6); Lymphocytes (Manual) 10 % (20-44); Monocytes (Manual) 7 % (2-9); Neutrophils (Manual) 70 % (50-70)
[2025-06-01] MEDS: ENOXAPARIN SOD INJ 40 MG/0.4 ML SYRINGE SC (09:17)
--- NOTE | 2025-06-01 14:04 | ESPR_ITS ---
<Statement entered by Alejandro Capellan MD - 06/02/25 09:11> TOTAL TIME: 45MINUTES ON DIRECT MEDICAL CARE, MANAGEMENT - COORDINATION AND COUNSELING > 50% OF TOTAL TIME I saw and evaluated the patient. I reviewed the resident?s note and agree with findings and plan as documented in the resident?s note. sustained improvement post d/c of narcan gtt cont abx for pneumonia f/u final clx results stable to transfer to med/surg Documentation for date of: 06/01/25 Subjective Subjective Interval history: Patient is drowsy and is responding to questions with nodding her head but not able to provide any history. So most of the history was taken from chart review. A 29-year-old female with significant past medical history of anxiety, chronic alcohol abuse, chronic marijuana use, remote chronic cocaine abuse, ?miscarriage, 1 elective , miscarriage in 03/2025 underwent dilatation and curettage was brought to the hospital with a chief complaints of altered sensorium since this morning. Per patient's boyfriend, patient was drinking throughout the day yesterday evening at her mother's house and not sure if she took any other drugs at that place. He picked her later in the evening and went together to a bar and had couple more drinks and later in the night she took 1 more dose of lorazepam and went back to sleep. On the morning of day of admission, the boyfriend is not able to wake her up from the sleep for which he brought her to the emergency department. Denies fever, nausea, vomiting, burning micturition, recent sick contacts, shortness of breath, cough. Patient was given a dose of Narcan while she was brought to the ED in the ambulance. In the ED, patient was noted to have an episode of emesis with blood tinge. 06/01/2025: Patient is seen and examined at bedside in ICU. No acute overnight events. Patient received around 1 L of bolus followed by 500 mL of bolus LR in view of elevated lactate. Overnight as patient's sodium is improved, half NS is held. Patient denies any complaints and appears more alert and awake. Narcan drip is slowly down titrated and stopped. Labs done this morning showed leukocytosis, sodium 141, chloride 109, BUN 9, creatinine 0.6, AST and ALT are downtrending. Unasyn was stopped and patient was transitioned to p.o. Augmentin as she passed swallow eval and patient is hemodynamically stable. As patient's overall mental status, renal functions, hypernatremia improved- patient is downgraded to floors for further management as she does not need ICU level of care anymore. Recommended to consult licensed social worker in view of drug abuse. Exam Vital Signs Temp Pulse Resp BP Pulse Ox O2 Del Method O2 Flow Rate 97.3 F 95 19 135/99 H 94 L Humidified Nasal Cannula 3 06/01/25 12:01 06/01/25 13:00 06/01/25 13:00 06/01/25 13:00 06/01/25 13:00 06/01/25 06:00 06/01/25 06:20 Narrative Exam General: Awake. HEENT: Normocephalic, atraumatic, mucous membranes moist. Heart: Regular rate and rhythm, no murmurs. on oxygen Lungs: Clear to auscultation with no wheezing or crackles. Abdomen: Soft, nondistended, nontender, positive bowel sounds. ?No guarding or rebound tenderness. Neurologic: Alert and oriented x3, no gross neurological deficit, and patient able to move all 4 extremities. Extremities: No edema. Skin: No rash or ecchymoses. Objective Labs 06/01/25 04:54 06/01/25 04:54 Labs: Laboratory Results - last 24 hr 05/31/25 05/31/25 05/31/25 17:35 19:33 21:13 WBC RBC Hgb Hct MCV MCH MCHC RDW Std Deviation Plt Count Neut % (Auto) Lymph % (Auto) Brantley % (Auto) Eos % (Auto) Baso % (Auto) Neut # (Auto) Lymph # (Auto) Brantley # (Auto) Eos # (Auto) Baso # (Auto) Immature Gran # (Auto) Absolute Nucleated RBC Immature Gran % Neutrophils % (Manual) Monocytes % (Manual) Nucleated RBC % Band Neutrophils Lymphocytes (Manual) Sodium 149 H 146 H Potassium 3.6 4.1 D Chloride 113 H Carbon Dioxide 21.0 Anion Gap 15 BUN 17 Creatinine 1.1 Estim Creat Clear Calc 82.7 eGFR > 60 BUN/Creatinine Ratio 15 Glucose 118 H D Calculated Osmolality 298 H Lactic Acid 4.1 H* Calcium 8.2 L Corrected Calcium 8.2 L Phosphorus 3.9 Magnesium 3.3 H Total Bilirubin AST ALT Alkaline Phosphatase Troponin I 2.356 H* D 2.424 H* Total Protein Albumin 4.2 Globulin Albumin/Globulin Ratio Ur Random Creatinine Ur Random Sodium Ur Random Potassium Ur Random Chloride 06/01/25 06/01/25 06/01/25 01:05 04:54 06:30 WBC 21.5 H D RBC 3.49 L Hgb 10.1 L Hct 32.6 L MCV 93 MCH 28.9 MCHC 31.0 RDW Std Deviation 46.4 H Plt Count 147 D Neut % (Auto) 82 H Lymph % (Auto) 7 L Brantley % (Auto) 11 Eos % (Auto) 0 Baso % (Auto) 0 Neut # (Auto) 17.6 H Lymph # (Auto) 1.4 Brantley # (Auto) 2.3 H Eos # (Auto) 0.0 Baso # (Auto) 0.1 Immature Gran # (Auto) 0.12 H Absolute Nucleated RBC 0.00 Immature Gran % 1 H Neutrophils % (Manual) 70 Monocytes % (Manual) 7 Nucleated RBC % 0 Band Neutrophils 13 H Lymphocytes (Manual) 10 L Sodium 141 Potassium 4.6 D Chloride 109 H Carbon Dioxide 24.6 Anion Gap 7 BUN 9 Creatinine 0.6 D Estim Creat Clear Calc 150.6 eGFR > 60 BUN/Creatinine Ratio 15 Glucose 108 H Calculated Osmolality 280 Lactic Acid 3.2 H 1.8 Calcium 7.6 L Corrected Calcium 7.9 L Phosphorus Magnesium Total Bilirubin 0.5 AST 46 H ALT 54 H Alkaline Phosphatase 32 L D Troponin I 1.226 H* D Total Protein 5.6 L Albumin 3.6 D Globulin 2.0 L Albumin/Globulin Ratio 1.8 Ur Random Creatinine 36 Ur Random Sodium 146.0 H Ur Random Potassium 35 Ur Random Chloride 128.0 H ABG Interpretation ABG results: 05/31/25 13:22 ABG pH 7.24 L ABG pCO2 54 H ABG pO2 86 ABG HCO3 23 ABG O2 Saturation 97 ABG Base Excess -5 L Quality Measures Quality Measures VTE prophylaxis Assessment & Plan Assessment Current Active Medications: Generic Name Dose Route Start Last Admin Trade Name Freq PRN Reason Stop Dose Admin Acetaminophen 650 mg 05/31/25 13:56 Acetaminophen 325 Mg Tablet PO 06/30/25 13:55 Q4HR PRN PAIN SCALE 1-3 (mild Acetaminophen 650 mg 05/31/25 14:26 Acetaminophen Supp 650 Mg Supp AK 06/30/25 14:25 Q4HR PRN PAIN SCALE 1-3 (mild Al Hydrox/Mg Hydrox/Simethicone 30 ml 05/31/25 14:26 Mg Hyd/Al Hyd/Guy (Maalox Reg) Susp 30 Ml Udc PO 06/30/25 14:25 Q4HR PRN Heartburn or Upset Stomach Amoxicillin/Clavulanate Potassium 1 tab 06/01/25 21:00 Amoxicillin/Pot Clav 875 Tablet PO 06/08/25 20:59 BID HANNAH Diazepam 2.5 mg 05/31/25 19:02 Diazepam Inj 5 Mg/Ml Vial 2 Ml IVP 06/05/25 19:01 Q2HR PRN CIWA SCORE 8-13 Diazepam 5 mg 05/31/25 19:02 Diazepam Inj 5 Mg/Ml Vial 2 Ml IVP 06/05/25 19:01 Q2HR PRN CIWA SCORE 14-19 Diazepam 10 mg 05/31/25 19:02 Diazepam Inj 5 Mg/Ml Vial 2 Ml IVP 06/05/25 19:01 Q2HR PRN CIWA SCORE 20-25 Diazepam 10 mg 05/31/25 19:02 Diazepam Inj 5 Mg/Ml Vial 2 Ml IVP X1 PRN Breakthrough Agitation Enoxaparin Sodium 40 mg 05/31/25 14:00 06/01/25 09:17 Enoxaparin Sod Inj 40 Mg/0.4 Ml Syringe SC 06/14/25 13:59 40 mg QDAY HANNAH Administration Magnesium Hydroxide 30 ml 05/31/25 14:26 Milk Of Magnesia Susp 30 Ml Udc PO 06/30/25 14:25 QDAY PRN CONSTIPATION Ondansetron HCl 4 mg 06/01/25 07:41 06/01/25 07:47 Ondansetron Inj 2 Mg/Ml Inj 2 Ml IVP 07/01/25 07:40 4 mg Q6HR PRN Administration NAUSEA OR VOMITING Protocol Pantoprazole Sodium 40 mg 06/01/25 07:45 06/01/25 07:48 Pantoprazole Inj 40 Mg Vial IVP 07/01/25 07:44 40 mg QDAY HANNAH Administration Plan Patient is drowsy and is responding to questions with nodding her head but not able to provide any history. So most of the history was taken from chart review. A 29-year-old female with significant past medical history of anxiety, chronic alcohol abuse, chronic marijuana use, remote chronic cocaine abuse, ?miscarriage, 1 elective , miscarriage in 03/2025 underwent dilatation and curettage was brought to the hospital with a chief complaints of altered sensorium since this morning. Per patient's boyfriend, patient was drinking throughout the day yesterday evening at her mother's house and not sure if she took any other drugs at that place. He picked her later in the evening and went together to a bar and had couple more drinks and later in the night she took 1 more dose of lorazepam and went back to sleep. On the morning of day of admission, the boyfriend is not able to wake her up from the sleep for which he brought her to the emergency department. Denies fever, nausea, vomiting, burning micturition, recent sick contacts, shortness of breath, cough. Patient was given a dose of Narcan while she was brought to the ED in the ambulance. In the ED, patient was noted to have an episode of emesis with blood tinge. [employer] # Acute encephalopathy, resolved Likely drug-induced in the setting of history of prolonged alcohol abuse, Benzodiazepine, fentanyl - Patient came in with altered sensorium to the emergency department - Per boyfriend at the bedside, he reported that she was drinking alcohol throughout the day yesterday and drank about half a liter bottle, hard liquor and also endorsed that she took 1 dose of lorazepam, unsure of the dosage. Diagnostic test: - Urine toxicology tested positive for fentanyl, benzodiazepine, marijuana - Head CT done showed no acute hemorrhage, midline affect, mass - Patient was given multiple doses of Narcan and found to responsive to those doses Treatment: - Patient was started on Narcan drip, weaned off and stopped this morning as patient became more alert and monitored later for respiratory depression - Will monitor symptoms for alcohol withdrawal and started on CIWA protocol # History of anxiety - Per boyfriend, she had history of anxiety and is taking lorazepam for it - Will hold home medication for now CVS # Sinus tachycardia - Patient is found to have heart rate around 100 to 110 bpm - Likely in the setting of alcohol withdrawal Diagnostic test: - EKG done on the day of admission showed normal sinus rhythm with tachycardia, no ST-T wave changes Treatment: - Repleted with 2 L of NS and was started on fluids - Started on CIWA protocol # Elevated troponins, likely NSTEMI type II - Elevated likely in the setting of acute drug abuse - EKG done at the time of admission showed no ST-T wave changes Treatment: - Troponins trended down and continuous telemetry monitoring RS # Aspiration pneumonia - At the time of presentation, patient was found to have low oxygen saturation and was started on OxyMask -She was a chronic alcoholic and had alcohol abuse yesterday and also took some drugs following which she was unconscious for prolonged time which could be contributing to the aspiration Diagnostic test: - Chest x-ray at the time of admission showed infiltrates in the right perihilar area Treatment: - Started on Unasyn 3 g every 6 hourly and later transitioned to augmentin 875mg twice daily. - Will continue noninvasive mechanical ventilation, oxygen as of now - Sputum cultures were sent, pending - Will continue to monitor oxygen saturation # Respiratory acidosis - Patient is altered at the time of presentation and patient positive for fentanyl - Likely having respiratory depression from the alcohol and fentanyl, benzodiazepine Diagnostic test - Tested positive for marijuana, fentanyl, benzodiazepine - ABG showed pH 7.24, PCO2 54 Treatment: - Patient is more awake and alert now with normal respiratory rate - Will do repeat ABG if there is any further suspicion of Respiratory depression GI # Nausea and vomiting - Patient had 1 episode of emesis with blood tinge - Likely in the setting of gastritis from drug abuse Treatment: - Started on IV pantoprazole 40 Mg daily - Ondansetron 4mg IV every 6th hrly as needed # Mild transaminitis # Chronic alcohol abuse - Patient had history of alcohol abuse and mild liver disease Diagnostic test: - Labs at the time of admission showed AST 68, ALT 72 Treatment: - Will continue to monitor liver function for now - park services specialist were consulted # History of liver nodule - Per boyfriend, patient had some mass in the liver which was diagnosed couple of years ago, likelt Focal nodular hyperplasia - Per chart review patient had right lobe liver lesion around 3 x 2 cm since 2019 which is stable since then. Treatment: - Recommend to follow-up on outpatient basis Renal # IRENA, likely prerenal, resolved - Patient had decreased oral intake and is on alcohol throughout the day - Likely dehydration, causing the prerenal acute kidney injury Diagnostic test: - Baseline creatinine is 0.5, creatinine at the time of admission is 1.4 -- 8/6, Cr 0.6 Treatment: - Will continue to monitor renal functions, urine output # Hypernatremia, resolved -Sodium at the time of admission is 151 --->8, 141 - Likely due to the dehydration and poor oral intake - Patient received 2 L of bolus in the ED - Started on half NS at 80 mL/h based on the free water deficit Treatment: - Will continue to monitor sodium and manage accordingly # Lactic acidosis, resolved - Likely in the setting of dehydration from poor oral intake - Lactate at the time of admission is 2.8 - Repeat lactate uptrending to 3.3 and patient was started on IV fluids --Improved, 06/01, 1.8 #Hypomagnesemia - Magnesium at the time of admission is 1.2 - 2 g of magnesium sulfate is given in the ED Treatment: - 4 g of magnesium sulfate is given through IV - Will repeat magnesium levels and replete as needed Endocrinology No active problems Infectious disease # Aspiration pneumonia -look in the respiratory system Hematology # Normocytic normochromic anemia - Hemoglobin at the time of admission is 11.8, likely nutritional in the setting of alcohol abuse Treatment: - Will continue to monitor CBC as hemoglobin is stable for now - Recommended to follow-up on outpatient basis for further evaluation Hospital Maintenance: Dispo: ICU DVT ppx: Loveox GI ppx: Protonix Diet: NPO except ice chips, will order bedside swallow later once patient is more awake IV lines: Peripheral Code status: Full Patient plan of care was discussed with the Cheese Grader Dr. Marilia Loving, PGY2
--- NOTE | 2025-06-01 15:06 | ESPR_ITS ---
<Statement entered by Robinson Montes De Oca MD - 06/01/25 23:24> Patient was examined and case was reviewed with team including attending physician. Note reviewed, I agree with most of its contents and agree with the patient's care as documented by Dr. Cleveland Patient downgraded from the ICU. Patient is a 29 y/o F who was admitted to the ICU due to drug intoxication of multiple substances requiring Narcan drip. Patient was weaned off drip and deemed stable to be downgraded to the floors. Patient overall has improved and is currently being treated for aspiration pneumonia with Augmentin. Will continue monitoring the patient for continued improvement and can likely be discharged in the next 24-48 hours on PO antibiotics. Case discussed with my attending Dr. Duncan Montes De Oca MD PGY-2 Documentation for date of: 06/01/25 Subjective Subjective Interval history: Evaluated at bedside. Downgrade from ICU. Continue abx for aspiration pneumonia. VS stable. Likely d/c tmr. Exam Vital Signs Temp Pulse Resp BP Pulse Ox O2 Del Method O2 Flow Rate 97.3 F 95 19 135/99 H 94 L Humidified Nasal Cannula 3 06/01/25 12:01 06/01/25 13:00 06/01/25 13:00 06/01/25 13:00 06/01/25 13:00 06/01/25 06:00 06/01/25 06:20 Narrative Exam General: Well appearing, well nourished, in no distress. Oriented x 3, normal mood and affect. Skin: Good turgor, no rash, unusual bruising or prominent lesions Head: Normocephalic, atraumatic, no visible or palpable masses, depressions, or scaring. Heart: No cardiomegaly or thrills; regular rate and rhythm, no murmur or gallop Lungs: Clear to auscultation and percussion. No rales, wheeze, or rhonchi Abdomen: Bowel sounds normal, no tenderness, organomegaly, masses, or hernia Back: Spine normal without deformity or tenderness, no CVA tenderness Extremities: No amputations or deformities, cyanosis, edema or varicosities, peripheral pulses intact Objective Labs 06/02/25 05:49 06/02/25 05:49 Labs: Laboratory Results - last 24 hr 05/31/25 05/31/25 05/31/25 14:59 17:35 19:33 WBC RBC Hgb Hct MCV MCH MCHC RDW Std Deviation Plt Count Neut % (Auto) Lymph % (Auto) [facility] [facility] % (Auto) Eos % (Auto) Baso % (Auto) Neut # (Auto) Lymph # (Auto) [facility] [facility] # (Auto) Eos # (Auto) Baso # (Auto) Immature Gran # (Auto) Absolute Nucleated RBC Immature Gran % Neutrophils % (Manual) Monocytes % (Manual) Nucleated RBC % Band Neutrophils Lymphocytes (Manual) Sodium 149 H Potassium 3.6 4.1 D Chloride 113 H Carbon Dioxide 21.0 Anion Gap 15 BUN 17 Creatinine 1.1 Estim Creat Clear Calc 82.7 eGFR > 60 BUN/Creatinine Ratio 15 Glucose 118 H D Calculated Osmolality 298 H Lactic Acid 3.3 H Calcium 8.2 L Corrected Calcium 8.2 L Phosphorus 3.9 Magnesium 3.3 H Total Bilirubin AST ALT Alkaline Phosphatase Troponin I 2.356 H* D Total Protein Albumin 4.2 Globulin Albumin/Globulin Ratio Ur Random Creatinine Ur Random Sodium Ur Random Potassium Ur Random Chloride 05/31/25 06/01/25 06/01/25 21:13 01:05 04:54 WBC 21.5 H D RBC 3.49 L Hgb 10.1 L Hct 32.6 L MCV 93 MCH 28.9 MCHC 31.0 RDW Std Deviation 46.4 H Plt Count 147 D Neut % (Auto) 82 H Lymph % (Auto) [address] [facility] % (Auto) 11 Eos % (Auto) 0 Baso % (Auto) 0 Neut # (Auto) 17.6 H Lymph # (Auto) 1.4 [facility] # (Auto) 2.3 H Eos # (Auto) 0.0 Baso # (Auto) 0.1 Immature Gran # (Auto) 0.12 H Absolute Nucleated RBC 0.00 Immature Gran % 1 H Neutrophils % (Manual) 70 Monocytes % (Manual) 7 Nucleated RBC % 0 Band Neutrophils 13 H Lymphocytes (Manual) 10 L Sodium 146 H 141 Potassium 4.6 D Chloride 109 H Carbon Dioxide 24.6 Anion Gap 7 BUN 9 Creatinine 0.6 D Estim Creat Clear Calc 150.6 eGFR > 60 BUN/Creatinine Ratio 15 Glucose 108 H Calculated Osmolality 280 Lactic Acid 4.1 H* 3.2 H 1.8 Calcium 7.6 L Corrected Calcium 7.9 L Phosphorus Magnesium Total Bilirubin 0.5 AST 46 H ALT 54 H Alkaline Phosphatase 32 L D Troponin I 2.424 H* 1.226 H* D Total Protein 5.6 L Albumin 3.6 D Globulin 2.0 L Albumin/Globulin Ratio 1.8 Ur Random Creatinine Ur Random Sodium Ur Random Potassium Ur Random Chloride 06/01/25 06:30 WBC RBC Hgb Hct MCV MCH MCHC RDW Std Deviation Plt Count Neut % (Auto) Lymph % (Auto) [facility] % (Auto) Eos % (Auto) Baso % (Auto) Neut # (Auto) Lymph # (Auto) [facility] # (Auto) Eos # (Auto) Baso # (Auto) Immature Gran # (Auto) Absolute Nucleated RBC Immature Gran % Neutrophils % (Manual) Monocytes % (Manual) Nucleated RBC % Band Neutrophils Lymphocytes (Manual) Sodium Potassium Chloride Carbon Dioxide Anion Gap BUN Creatinine Estim Creat Clear Calc eGFR BUN/Creatinine Ratio Glucose Calculated Osmolality Lactic Acid Calcium Corrected Calcium Phosphorus Magnesium Total Bilirubin AST ALT Alkaline Phosphatase Troponin I Total Protein Albumin Globulin Albumin/Globulin Ratio Ur Random Creatinine 36 Ur Random Sodium 146.0 H Ur Random Potassium 35 Ur Random Chloride 128.0 H ABG Interpretation ABG results: 05/31/25 13:22 ABG pH 7.24 L ABG pCO2 54 H ABG pO2 86 ABG HCO3 23 ABG O2 Saturation 97 ABG Base Excess -5 L Quality Measures Quality Measures VTE prophylaxis Assessment & Plan Assessment Current Active Medications: Generic Name Dose Route Start Last Admin Trade Name Freq PRN Reason Stop Dose Admin Acetaminophen 650 mg 05/31/25 13:56 Acetaminophen 325 Mg Tablet PO 06/30/25 13:55 Q4HR PRN PAIN SCALE 1-3 (mild Acetaminophen 650 mg 05/31/25 14:26 Acetaminophen Supp 650 Mg Supp ND 06/30/25 14:25 Q4HR PRN PAIN SCALE 1-3 (mild Al Hydrox/Mg Hydrox/Simethicone 30 ml 05/31/25 14:26 Mg Hyd/Al Hyd/Guy (Maalox Reg) Susp 30 Ml Udc PO 06/30/25 14:25 Q4HR PRN Heartburn or Upset Stomach Amoxicillin/Clavulanate Potassium 1 tab 06/01/25 21:00 Amoxicillin/Pot Clav 875 Tablet PO 06/08/25 20:59 BID HANNAH Diazepam 2.5 mg 05/31/25 19:02 Diazepam Inj 5 Mg/Ml Vial 2 Ml IVP 06/05/25 19:01 Q2HR PRN CIWA SCORE 8-13 Diazepam 5 mg 05/31/25 19:02 Diazepam Inj 5 Mg/Ml Vial 2 Ml IVP 06/05/25 19:01 Q2HR PRN CIWA SCORE 14-19 Diazepam 10 mg 05/31/25 19:02 Diazepam Inj 5 Mg/Ml Vial 2 Ml IVP 06/05/25 19:01 Q2HR PRN CIWA SCORE 20-25 Diazepam 10 mg 05/31/25 19:02 Diazepam Inj 5 Mg/Ml Vial 2 Ml IVP X1 PRN Breakthrough Agitation Enoxaparin Sodium 40 mg 05/31/25 14:00 06/01/25 09:17 Enoxaparin Sod Inj 40 Mg/0.4 Ml Syringe SC 06/14/25 13:59 40 mg QDAY HANNAH Administration Magnesium Hydroxide 30 ml 05/31/25 14:26 Milk Of Magnesia Susp 30 Ml Udc PO 06/30/25 14:25 QDAY PRN CONSTIPATION Ondansetron HCl 4 mg 06/01/25 07:41 06/01/25 07:47 Ondansetron Inj 2 Mg/Ml Inj 2 Ml IVP 07/01/25 07:40 4 mg Q6HR PRN Administration NAUSEA OR VOMITING Protocol Pantoprazole Sodium 40 mg 06/01/25 07:45 06/01/25 07:48 Pantoprazole Inj 40 Mg Vial IVP 07/01/25 07:44 40 mg QDAY HANNAH Administration Plan 29-year-old female with significant past medical history of anxiety, chronic alcohol abuse, chronic marijuana use, remote chronic cocaine abuse, 1 elective , miscarriage in 03/2025 underwent dilatation and curettage was admitted for acute intoxication secondary to drug/alcohol use. Continue Augmentin for aspiration pneumonia. # Aspiration pneumonia Pt presented with AMS secondary to alcohol/drug use, low O2 sat, initial CXR showerd right perihilar infiltrate. 06/01: CXR showed significant bilateral perihilar pneumonia remains Dx: - Chest x-ray - Trend WBC Tx: - Continue Augmentin 875 PO BID - Supplemental O2 as needed - Sputum cultures were sent, no organism seen @ 24H. - Will continue to monitor oxygen saturation # Acute encephalopathy Likely drug-induced in the setting of history of prolonged alcohol abuse, Benzodiazepine, fentanyl Patient came in with altered sensorium to the emergency department Per boyfriend at the bedside, he reported that she was drinking alcohol throughout the day yesterday and drank about half a liter bottle, hard liquor and also endorsed that she took 1 dose of lorazepam, unsure of the dosage. Dx: - Urine toxicology tested positive for fentanyl, benzodiazepine, marijuana - Head CT done showed no acute hemorrhage, midline affect, mass - Patient was given multiple doses of Narcan and found to responsive to those doses Tx: - d/c Narcan drip, will continue to monitor symptoms - Will monitor symptoms for alcohol withdrawal and will start on [facility] protocol # Elevated troponins, likely NSTEMI type II - downtrending - Elevated likely in the setting of acute drug abuse - EKG done at the time of admission showed no ST-T wave changes Tx: - Will trend troponins and continuous telemetry monitoring # Respiratory acidosis Patient is altered at the time of presentation and patient positive for fentanyl Likely having respiratory depression from the alcohol and fentanyl, benzodiazepine /: Bicarb 24.6 Dx: - Tested positive for marijuana, fentanyl, benzodiazepine - Initial ABG showed pH 7.24, PCO2 54 Tx: - d/c Narcan drip - VBG tmr morning. - Consider BiPAP if severely acidotic and resp distress # History of anxiety Per boyfriend, she had history of anxiety and is taking lorazepam for it - Will hold home medication for now # Normocytic normochromic anemia Hemoglobin at the time of admission is 11.8, likely nutritional in the setting of alcohol abuse Tx: - Will continue to monitor CBC as hemoglobin is stable for now - Recommended to follow-up on outpatient basis for further evaluation # History of liver nodule Per boyfriend, patient had some mass in the liver which was diagnosed couple of years ago, likely Focal nodular hyperplasia Per chart review patient had right lobe liver lesion around 3 x 2 cm since 2019 which is stable since then. Tx: - Recommend to follow-up on outpatient basis # Mild transaminitis - downtrending # Chronic alcohol abuse Patient had history of alcohol abuse and mild liver disease Dx: - Initial Labs showed AST 68, ALT 72 Treatment: - Will continue to monitor liver function for now - associate director career services were consulted # Sinus tachycardia - resolved - Patient is found to have heart rate around 100 to 110 bpm - Likely in the setting of alcohol withdrawal Diagnostic test: - EKG done on the day of admission showed normal sinus rhythm with tachycardia, no ST-T wave changes Tx: - Repleted with 2 L of NS and was started on fluids, d/pedro luis fluid now. - Will start on CIWA protocol # Nausea and vomiting - resolved - Patient had 1 episode of emesis with blood tinge - Likely in the setting of gastritis from drug abuse Treatment: - Started on IV pantoprazole 40 Mg daily - Zofran PRN # IRENA, likely prerenal - resolved - Patient had decreased oral intake and is on alcohol throughout the day - Likely dehydration, causing the prerenal acute kidney injury Diagnostic test: - Baseline creatinine is 0.5, creatinine at the time of admission is 1.4 Treatment: - Patient received 2 L of bolus in the ED - Started on IV fluids, d/pedro luis now - Urine electrolytes were sent - Will continue to monitor renal functions, urine output # Hypernatremia - resolved -Sodium at the time of admission is 151 - Likely due to the dehydration and poor oral intake Treatment: - Patient received 2 L of bolus in the ED - Started on half NS at 80 mL/h based on the free water deficit, d/pedro luis now - Will continue to monitor sodium and manage accordingly # Lactic acidosis - resolved Likely in the setting of dehydration from poor oral intake Lactate at the time of admission is 2.8 Dx: - Repeat lactate uptrending to 3.3 and patient was started on IV fluids Tx: - Will continue to monitor lactate and treat accordingly #Hypomagnesemia - resolved - Magnesium at the time of admission is 1.2 - 2 g of magnesium sulfate is given in the ED Treatment: - 4 g of magnesium sulfate is given through IV - Will repeat magnesium levels and replete as needed Dispo: ICU downgrade to [facility] DVT prophylaxis: Lovenox GI prophylaxis: Protonix 40 Diet: Clear liquid diet Lines: Peripheral IV Code status: Full code Case discussed with my senior resident Dr. Mckeon Case discussed with my attending Dr. Duncan Cleveland, DO PGY 1 Attending Provider Attestation/Addendum I have examined the patient, reviewed labs and imaging findings, discussed the case with the resident(s), and reviewed entered orders. I agree with the plan of care as outlined in this note, with these additional summaries/recommendations: Patient seen at bedside. Acute encephalopathy secondary to polysubstance abuse and acute drug intoxication now resolved. She appears at her baseline mental status. Patient was counseled extensively on avoiding substances in the future. Consult clinical social work aide for resources. Patient is status post Narcan drip and downgraded to medical floor. Continue antibiotics for aspiration pneumonia. Patient was found to have significantly elevated troponin which has now down trended. Most likely secondary to demand ischemia in the setting of drug overdose. Transaminitis improving. As needed Zofran for nausea. IRENA resolved. Hypernatremia now resolved. Repeat hematology and chemistry panel in AM. Anticipate discharge in the next 24 to 48 hours. Patient updated on the plan and in agreement. All questions answered to satisfaction. Please see residents note for additional details and management. Dr. Duncan MD
--- NOTE | 2025-06-01 16:19 | PC.SS ---
FLOW SPECIALIST conducted bedside contact with the patient conduct initial assessment and to discuss discharge planning.? Patient confirmed demographic information.? Patient resides at home with partner, Luis Fernando Read .? Partner at bedside during discussion.? Patient gave permission for partner to be present during discussion.? Patient admitted to hospital due to possible drug overdose.? Patient informed FLOW SPECIALIST that drug use not an attempt at self-harm.? Patient stated that drug use was recreational in combination with alcohol consumption.? Patient denied current intent/plan of SI/HI.? Patient denied history of self-harm behaviors.? Partner confirmed no concerns related to the patient?s mental status.? Patient is fully ambulatory.? Patient does not utilize home oxygen.? Patient describes ability to complete ADL?s independently.? Patient identified partner, Luis Fernando Zhangiris; as surrogate medical decision maker.? Patient is not aligned with PCP services.? Patient receptive to obtaining follow up PCP at [facility].? gate services supervisor to provide patient with AOD resources.? Plan is for the patient to return home at the time of discharge.? Family will provide transportation on behalf of the patient. ?No further discharge needs identified by the patient.? No further intervention required at this time, social media content specialist will be available to address any further concerns.? Next of Kin: Luis Fernando Read D/C Plan: Home
[2025-06-01] MEDS: AMOXICILLIN/POT CLAV 875 TABLET 1 TAB PO (20:18)
[2025-06-02] VITALS (10 sets, daily range): BP systolic 121–142; BP diastolic 67–94; PULSE 85–110; RESP 16–19; TEMP 36.6–37.2; O2SAT 93–100; BMI 29.0
[2025-06-02 06:09] LABS: Base Excess, Venous 1 (-3-3); O2 Saturation, Venous 100 % (96-97); PCO2, Venous 40 mmHg (36-56); PO2, Venous 123 mmHg (15-58); pH, Venous 7.41 (7.33-7.66)
[2025-06-02 06:24] LABS: Basophils # (Auto) 0.1 Thou/mm3 (0.0-0.2); Basophils % (Auto) 0 % (0-2.5); Eosinophils # (Auto) 0.0 Thou/mm3 (0.0-0.5); Eosinophils % (Auto) 0 % (0-10); Hematocrit 36.3 % (36.0-46.0); Hemoglobin 11.2 g/dL (12.0-16.0); Immature Granulocytes Auto 0.21 Thou/mm3 (0.00-0.00); Lymphocytes # (Auto) 1.4 Thou/mm3 (1.0-4.8); Lymphocytes % (Auto) 6 % (10-50); Mean Corpuscular HGB Conc 30.9 g/dl (31.0-37.0); Mean Corpuscular Hemoglobin 29.0 pg (25.0-35.0); Mean Corpuscular Volume 94 fL (80-100); Monocytes # (Auto) 1.3 Thou/mm3 (0.0-0.8); Monocytes % (Auto) 6 % (0-12); Neutrophils # (Auto) 20.7 Thou/mm3 (1.8-7.7); Neutrophils % (Auto) 87 % (37-80); Nucleated Red Blood Cell # 0.00 Thou/mm3 (0.00-0.00); Nucleated Red Blood Cell % 0 /100 WBC (0); Platelet Count 172 Thou/mm3 (140-440); RDW Standard Deviation 46.0 fL (36.4-46.3); Red Blood Count 3.86 Miln/mm3 (4.00-5.20); White Blood Count 23.7 Thou/mm3 (3.6-11.0)
[2025-06-02 06:38] LABS: Alanine Aminotransferase 45 U/L (10-49); Albumin, Serum 4.2 gm/dL (3.5-5.0); Albumin/Globulin Ratio 1.6 (1.2-2.2); Alkaline Phosphatase 57 U/L (46-116); Anion Gap 8 (7-16); Aspartate Amino Transferase 28 U/L (0-34); BUN/Creatinine Ratio 16 Ratio (12-20); Bilirubin,Total 1.1 mg/dL (0.3-1.2); Blood Urea Nitrogen 8 mg/dL (9-23); Calcium 9.3 mg/dL (8.3-10.6); Calcium (Corrected) 9.3 mg/dL (8.5-10.1); Carbon Dioxide 26.3 mMol/L (20.0-31.0); Chloride 106 mMol/L (98-107); Creatinine (Component) 0.5 mg/dL (0.6-1.3); Estimated Creatinine Clearance 180.7 mL/min (>60); Globulin 2.6 gm/dL (2.3-3.5); Glucose 108 mg/dL (74-106); Magnesium 1.7 mg/dL (1.6-2.6); Osmolality,Calculated 278 (275-295); Phosphorous 2.2 mg/dL (2.4-5.1); Potassium 4.7 mMol/L (3.4-5.1); Sodium 140 mMol/L (136-145); Total Protein 6.8 gm/dL (5.7-8.2); eGFR > 60 See Note
[2025-06-02] MEDS: ONDANSETRON INJ 2 MG/ML INJ 2 ML 4 MG IVP ×2 (08:39→17:35)
[2025-06-02] MEDS: Magnesium Sulfate 4 GM Ivpb 4 GM/50 ML BAG IV (08:43)
[2025-06-02] MEDS: ENOXAPARIN SOD INJ 40 MG/0.4 ML SYRINGE SC (08:43)
[2025-06-02] MEDS: AMOXICILLIN/POT CLAV 875 TABLET 1 TAB PO ×2 (08:43→17:19)
[2025-06-02] MEDS: NAPH,KPH MBDB 1 PACKET (1.5 GM) PO (08:43)
--- NOTE | 2025-06-02 09:52 | PC.SS ---
Addendum entered by Ashleigh Bravo 06/02/25 10:12: SS follow up note SS confirmed Patient's mother, Wanda Slater contact number, [phone]. Original Note: Patient Yari Monet is a Year old female admitted for Drug overdose. SS met with patient and her life partner, Luis Fernando Read at bedside, however patient was not responding to SS questions at the time. Patient's life partner Luis Fernando reports patient live at home with him. Patient's medical decision maker is patient's life partner Luis Fernando Read, .He reports patients mother is as well Wanda Ro, however does not have her contact information. Prior to admission patient was able to complete all ADL's independently and does not utilize any source of DME. Pharmacy of choice is [facility]. PCP is at [facility]. At time of discharge patient will return home. SS will meet with patient to provide resources when she is more alert. Discharge Plan: Home Next of kin: Luis Fernando Jacek [phone]
--- NOTE | 2025-06-02 11:15 | XR_ITS ---
Examination: CT brain head without contrast. 2-D sagittal coronal reconstructions Date and time of exam:June 02, 2025 1254 hours Comparison May 31, 2025 INDICATIONS: Drug overdose this week with altered mental status CTDI: vol (mGy):51.4 DLP: (mGycm):1048 Technique: Multiple CT axial sections of the brain have been obtained, 5 mm slice thickness. Contrast has not been administered. 2-D sagittal, coronal reconstructions have been obtained Low dose protocols were performed. One or more of the following dose reduction techniques were used; automated exposure control, adjustment of the mA and/or KV according to patient size, use of iterative reconstruction technique. Findings: No significant ventricular enlargement. Intra-axial or extra-axial hemorrhage density is not seen. No mass effect or midline shift Basal cisterns are not remarkable. Fourth ventricle is midline. Cranial vault intact. Impression: Negative for acute hemorrhage, mass effect or midline shift As clinically warranted, brain MRI follow-up would best assess for anoxic ischemic change
--- NOTE | 2025-06-02 12:58 | ESPR_ITS ---
<Statement entered by Robinson Montes De Oca MD - 06/02/25 20:21> Patient was examined and case was reviewed with team including attending physician. Note reviewed, I agree with most of its contents and agree with the patient's care as documented by Dr. Cleveland Patient seen today at the bedside could not hold a conversation without becoming somnolent, Head CT ordered, ordered one on one sitter/ camera in the room for closer patient monitoring. Vitals are stable at this time. Will continue with augmentin for aspiration pneumonia, WBCs uptrending noted, however patient not spiking fevers at this time. If WBCs continue to uptrend and patient not clinically improving can consider adjusting abx. Case discussed with my attending Dr. Duncan Montes De Oca MD PGY-2 Documentation for date of: 06/02/25 Subjective Subjective Interval history: No overnight events. Evaluated at bedside. Pt was actively vomiting, Zofran IVP x 1 given. Returned an hour after, pt appeared solmenlent. She was not able to keep her eyes open upon examination or questioning. CT head ordered, pending read. AM lab showed increased WBC count, likely due to chemopneumonitis from gastric aspiration. Will continue to monitor and switch to different antibiotic regimen if needed. Exam Vital Signs Temp Pulse Resp BP Pulse Ox O2 Del Method O2 Flow Rate 98.2 F 89 19 122/86 H 93 L Oxy Mask 5 06/02/25 12:00 06/02/25 12:06/02/25 12:06/02/25 12:06/02/25 12:06/02/25 12:06/02/25 12:00 Narrative Exam General: Well appearing, well nourished, in no distress. Somnolent Skin: Good turgor, no rash, unusual bruising or prominent lesions Head: Normocephalic, atraumatic, no visible or palpable masses, depressions, or scaring. Heart: No cardiomegaly or thrills; regular rate and rhythm, no murmur or gallop Lungs: Clear to auscultation and percussion. No rales, wheeze, or rhonchi Abdomen: Bowel sounds normal, no tenderness, organomegaly, masses, or hernia Back: Spine normal without deformity or tenderness, no CVA tenderness Extremities: No amputations or deformities, cyanosis, edema or varicosities, peripheral pulses intact Objective Labs 06/03/25 05:35 06/03/25 05:35 Labs: Laboratory Results - last 24 hr 06/02/25 05:49 WBC 23.7 H RBC 3.86 L Hgb 11.2 L Hct 36.3 MCV 94 MCH 29.0 MCHC 30.9 L RDW Std Deviation 46.0 Plt Count 172 Neut % (Auto) 87 H Lymph % (Auto) 6 L Desha % (Auto) 6 Eos % (Auto) 0 Baso % (Auto) 0 Neut # (Auto) 20.7 H Lymph # (Auto) 1.4 Desha # (Auto) 1.3 H Eos # (Auto) 0.0 Baso # (Auto) 0.1 Immature Gran # (Auto) 0.21 H Absolute Nucleated RBC 0.00 Immature Gran % 1 H Nucleated RBC % 0 VBG pH 7.41 VBG pCO2 40 VBG pO2 123 H VBG O2 Sat (Merlyn) 100 H VBG Base Excess 1 Sodium 140 Potassium 4.7 Chloride 106 Carbon Dioxide 26.3 Anion Gap 8 BUN 8 L Creatinine 0.5 L Estim Creat Clear Calc 180.7 eGFR > 60 BUN/Creatinine Ratio 16 Glucose 108 H Calculated Osmolality 278 Calcium 9.3 D Corrected Calcium 9.3 Phosphorus 2.2 L Magnesium 1.7 Total Bilirubin 1.1 D AST 28 ALT 45 Alkaline Phosphatase 57 D Total Protein 6.8 Albumin 4.2 D Globulin 2.6 Albumin/Globulin Ratio 1.6 ABG Interpretation ABG results: 05/31/25 06/02/25 13:22 05:49 ABG pH 7.24 L ABG pCO2 54 H ABG pO2 86 ABG HCO3 23 ABG O2 Saturation 97 ABG Base Excess -5 L VBG pH 7.41 VBG pCO2 40 VBG pO2 123 H VBG Base Excess 1 Quality Measures Quality Measures VTE prophylaxis Assessment & Plan Assessment Current Active Medications: Generic Name Dose Route Start Last Admin Trade Name Freq PRN Reason Stop Dose Admin Acetaminophen 650 mg 05/31/25 13:56 Acetaminophen 325 Mg Tablet PO 06/30/25 13:55 Q4HR PRN PAIN SCALE 1-3 (mild Acetaminophen 650 mg 05/31/25 14:26 Acetaminophen Supp 650 Mg Supp IL 06/30/25 14:25 Q4HR PRN PAIN SCALE 1-3 (mild Al Hydrox/Mg Hydrox/Simethicone 30 ml 05/31/25 14:26 Mg Hyd/Al Hyd/Guy (Maalox Reg) Susp 30 Ml Udc PO 06/30/25 14:25 Q4HR PRN Heartburn or Upset Stomach Amoxicillin/Clavulanate Potassium 1 tab 06/01/25 21:00 06/02/25 08:43 Amoxicillin/Pot Clav 875 Tablet PO 06/08/25 20:59 1 tab BID HANNAH Administration Enoxaparin Sodium 40 mg 05/31/25 14:00 06/02/25 08:43 Enoxaparin Sod Inj 40 Mg/0.4 Ml Syringe SC 06/14/25 13:59 40 mg QDAY HANNAH Administration Magnesium Hydroxide 30 ml 05/31/25 14:26 Milk Of Magnesia Susp 30 Ml Udc PO 06/30/25 14:25 QDAY PRN CONSTIPATION Ondansetron HCl 4 mg 06/01/25 07:41 06/02/25 08:39 Ondansetron Inj 2 Mg/Ml Inj 2 Ml IVP 07/01/25 07:40 4 mg Q6HR PRN Administration NAUSEA OR VOMITING Protocol Pantoprazole Sodium 40 mg 06/01/25 07:45 06/02/25 08:40 Pantoprazole Inj 40 Mg Vial IVP 07/01/25 07:44 40 mg QDAY HANNAH Administration Plan 29-year-old female with significant past medical history of anxiety, chronic alcohol abuse, chronic marijuana use, remote chronic cocaine abuse, 1 elective , miscarriage in 03/2025 underwent dilatation and curettage was admitted for acute intoxication secondary to drug/alcohol use. Continue Augmentin for aspiration pneumonia. Pending CT head. # Aspiration pneumonia # Leukocytosis - uptrending Pt presented with AMS secondary to alcohol/drug use, low O2 sat, initial CXR showerd right perihilar infiltrate. 06/01: CXR showed significant bilateral perihilar pneumonia remains Dx: - Chest x-ray - Trend WBC Tx: - Continue Augmentin 875 PO BID, if WBC continue to uptrend, consider different antiobiotic regimen. - Supplemental O2 as needed - Sputum cultures were sent, no organism seen @ 24H. - Will continue to monitor oxygen saturation # Acute encephalopathy Likely drug-induced in the setting of history of prolonged alcohol abuse, Benzodiazepine, fentanyl Patient came in with altered sensorium to the emergency department Per boyfriend at the bedside, he reported that she was drinking alcohol throughout the day yesterday and drank about half a liter bottle, hard liquor and also endorsed that she took 1 dose of lorazepam, unsure of the dosage. 06/02: Pt continue to appear somnolent upon examination Dx: - Urine toxicology tested positive for fentanyl, benzodiazepine, marijuana - Head CT done showed no acute hemorrhage, midline affect, mass - Patient was given multiple doses of Narcan and found to responsive to those doses - Repeat CT head 06/02, pending read. - Consider MRI brain for anoxic brain injury Tx: - d/c Narcan drip, will continue to monitor symptoms - D/C [facility] protocol # Elevated troponins, likely NSTEMI type II - downtrending Elevated likely in the setting of acute drug abuse EKG done at the time of admission showed no ST-T wave changes Trop peaked at 2.424 Tx: - Will trend troponins as needed # Respiratory acidosis Patient is altered at the time of presentation and patient positive for fentanyl Likely having respiratory depression from the alcohol and fentanyl, benzodiazepine 06/01: Bicarb 24.6 06/02: pH 7.41, pCO2 40, pO2 123 Dx: - Tested positive for marijuana, fentanyl, benzodiazepine - Initial ABG showed pH 7.24, PCO2 54 Tx: - d/c Narcan drip - VBG obtained - Consider BiPAP if severely acidotic and resp distress # History of anxiety Per boyfriend, she had history of anxiety and is taking lorazepam for it - Will hold home medication for now # Normocytic normochromic anemia Hemoglobin at the time of admission is 11.8, likely nutritional in the setting of alcohol abuse Tx: - Will continue to monitor CBC as hemoglobin is stable for now - Recommended to follow-up on outpatient basis for further evaluation # History of liver nodule Per boyfriend, patient had some mass in the liver which was diagnosed couple of years ago, likely Focal nodular hyperplasia Per chart review patient had right lobe liver lesion around 3 x 2 cm since 2019 which is stable since then. Tx: - Recommend to follow-up on outpatient basis # Mild transaminitis - resolved # Chronic alcohol abuse Patient had history of alcohol abuse and mild liver disease Dx: - Initial Labs showed AST 68, ALT 72 Treatment: - Will continue to monitor liver function for now - social services aide were consulted # Sinus tachycardia - resolved - Patient is found to have heart rate around 100 to 110 bpm - Likely in the setting of alcohol withdrawal Diagnostic test: - EKG done on the day of admission showed normal sinus rhythm with tachycardia, no ST-T wave changes Tx: - Repleted with 2 L of NS and was started on fluids, d/pedro luis fluid now. - Will start on CIWA protocol # Nausea and vomiting - resolved - Patient had 1 episode of emesis with blood tinge - Likely in the setting of gastritis from drug abuse Treatment: - Started on IV pantoprazole 40 Mg daily - Zofran PRN # IRENA, likely prerenal - resolved - Patient had decreased oral intake and is on alcohol throughout the day - Likely dehydration, causing the prerenal acute kidney injury Diagnostic test: - Baseline creatinine is 0.5, creatinine at the time of admission is 1.4 Treatment: - Patient received 2 L of bolus in the ED - Started on IV fluids, d/pedro luis now - Urine electrolytes were sent - Will continue to monitor renal functions, urine output # Hypernatremia - resolved -Sodium at the time of admission is 151 - Likely due to the dehydration and poor oral intake Treatment: - Patient received 2 L of bolus in the ED - Started on half NS at 80 mL/h based on the free water deficit, d/pedro luis now - Will continue to monitor sodium and manage accordingly # Lactic acidosis - resolved Likely in the setting of dehydration from poor oral intake Lactate at the time of admission is 2.8 Dx: - Repeat lactate uptrending to 3.3 and patient was started on IV fluids Tx: - Will continue to monitor lactate and treat accordingly #Hypomagnesemia - resolved - Magnesium at the time of admission is 1.2 - 2 g of magnesium sulfate is given in the ED Treatment: - 4 g of magnesium sulfate is given through IV - Will repeat magnesium levels and replete as needed Dispo: ICU downgrade to tele DVT prophylaxis: Lovenox GI prophylaxis: Protonix 40 Diet: Clear liquid diet Lines: Peripheral IV Code status: Full code Case discussed with my senior resident Dr. Mckeon Case discussed with my attending Dr. Duncan Cleveland, DO PGY 1 Attending Provider Attestation/Addendum I have examined the patient, reviewed labs and imaging findings, discussed the case with the resident(s), and reviewed entered orders. I agree with the plan of care as outlined in this note, with these additional summaries/recommendations: Patient seen at bedside. No acute overnight events. Patient appears somnolent today and noted to be falling asleep during our evaluation. We will order head CT. Patient was counseled extensively on avoiding substances in the future. Consult adoption social worker for resources. Patient is status post Narcan drip and downgraded to medical floor. Continue antibiotics for aspiration pneumonia. Leukocytosis worsening. Patient was found to have significantly elevated troponin which has now down trended. Most likely secondary to demand ischemia in the setting of drug overdose. Transaminitis improving. As needed Zofran for nausea. IRENA resolved. Hypernatremia now resolved. Repeat hematology and chemistry panel in AM. Anticipate discharge in the next 24 to 48 hours. Patient updated on the plan and in agreement. All questions answered to satisfaction. Please see residents note for additional details and management. Dr. Duncan MD
[2025-06-03] VITALS (9 sets, daily range): BP systolic 98–127; BP diastolic 67–79; PULSE 76–101; RESP 20–86; TEMP 36.2–36.8; O2SAT 93–99; BMI 28.6
[2025-06-03] MEDS: ONDANSETRON INJ 2 MG/ML INJ 2 ML 4 MG IVP ×2 (00:18→08:25)
[2025-06-03] MEDS: Milk Of Magnesia Susp 30 ML UDC PO (00:26)
[2025-06-03 05:58] LABS: Basophils # (Auto) 0.1 Thou/mm3 (0.0-0.2); Basophils % (Auto) 0 % (0-2.5); Eosinophils # (Auto) 0.0 Thou/mm3 (0.0-0.5); Eosinophils % (Auto) 0 % (0-10); Hematocrit 35.6 % (36.0-46.0); Hemoglobin 10.8 g/dL (12.0-16.0); Immature Granulocytes Auto 0.10 Thou/mm3 (0.00-0.00); Lymphocytes # (Auto) 2.0 Thou/mm3 (1.0-4.8); Lymphocytes % (Auto) 10 % (10-50); Mean Corpuscular HGB Conc 30.3 g/dl (31.0-37.0); Mean Corpuscular Hemoglobin 28.3 pg (25.0-35.0); Mean Corpuscular Volume 93 fL (80-100); Monocytes # (Auto) 1.0 Thou/mm3 (0.0-0.8); Monocytes % (Auto) 5 % (0-12); Neutrophils # (Auto) 16.3 Thou/mm3 (1.8-7.7); Neutrophils % (Auto) 84 % (37-80); Nucleated Red Blood Cell # 0.00 Thou/mm3 (0.00-0.00); Nucleated Red Blood Cell % 0 /100 WBC (0); Platelet Count 187 Thou/mm3 (140-440); RDW Standard Deviation 43.8 fL (36.4-46.3); Red Blood Count 3.81 Miln/mm3 (4.00-5.20); White Blood Count 19.4 Thou/mm3 (3.6-11.0)
[2025-06-03 06:23] LABS: Alanine Aminotransferase 36 U/L (10-49); Albumin, Serum 4.2 gm/dL (3.5-5.0); Albumin/Globulin Ratio 1.4 (1.2-2.2); Alkaline Phosphatase 66 U/L (46-116); Anion Gap 10 (7-16); Aspartate Amino Transferase 21 U/L (0-34); BUN/Creatinine Ratio 20 Ratio (12-20); Bilirubin,Total 1.1 mg/dL (0.3-1.2); Blood Urea Nitrogen 8 mg/dL (9-23); Calcium 9.9 mg/dL (8.3-10.6); Calcium (Corrected) 9.9 mg/dL (8.5-10.1); Carbon Dioxide 27.8 mMol/L (20.0-31.0); Chloride 104 mMol/L (98-107); Creatinine (Component) 0.4 mg/dL (0.6-1.3); Estimated Creatinine Clearance 225.9 mL/min (>60); Globulin 3.0 gm/dL (2.3-3.5); Glucose 97 mg/dL (74-106); Magnesium 1.9 mg/dL (1.6-2.6); Osmolality,Calculated 281 (275-295); Phosphorous 2.7 mg/dL (2.4-5.1); Potassium 4.2 mMol/L (3.4-5.1); Sodium 142 mMol/L (136-145); Total Protein 7.2 gm/dL (5.7-8.2); eGFR > 60 See Note
[2025-06-03] MEDS: PANTOPRAZOLE 40 MG TABLET PO (08:18)
[2025-06-03] MEDS: AMOXICILLIN/POT CLAV 875 TABLET 1 TAB PO (08:18)
[2025-06-03] MEDS: ENOXAPARIN SOD INJ 40 MG/0.4 ML SYRINGE SC (08:18)
--- NOTE | 2025-06-03 08:50 | PC.NURSE ---
PATIENT VOMITED PO ANTIBIOTIC THIS MORNING, DR. PRESCOTT MADE AWARE NO NEW ORDERS.
[2025-06-03] MEDS: Magnesium Sulfate 4 GM Ivpb 4 GM/50 ML BAG IV (10:46)
[2025-06-03] MEDS: ACETAMINOPHEN 325 MG TABLET 650 MG PO (12:46)
--- NOTE | 2025-06-03 13:00 | PC.NURSE ---
DR. PRESCOTT ORDER PHYSICAL THERAPY.
[2025-06-03] MEDS: BENZONATATE 100 MG CAPSULE PO (14:09)
--- NOTE | 2025-06-03 14:40 | PC.SS ---
SS follow up note; PT eval pending, patient is not medically cleared at the time. Patient will discharge home.
--- NOTE | 2025-06-03 15:30 | PC.NURSE ---
PATIENT ALERT AND ORIENTED X3, ABLE TO COMMUNICATE NEEDS, PATIENT AGREEABLE TO DISCHARGE, REFUSED UBER, SHE VERBALIZE THAT SHE WOULD GO HOME WITH HER LIFE PARTNER CAMI.
--- NOTE | 2025-06-03 16:09 | PC.CC ---
spoke to Dr. Song about services for PT. concerns of home bound status discussed. Informed MD of the of home bound status criteria. Pt ambulated to bathroom w/ SBA w/ ACID CONDITIONING WORKER, pt tolerated well. Per Dr. Song, cancel order.
--- NOTE | 2025-06-03 16:12 | ESDS_ITS ---
<Statement entered by Robinson Montes De Oca MD - 06/03/25 20:54> Patient was examined and case was reviewed with team including attending physician. Note reviewed, I agree with most of its contents and agree with the patient's care as documented by Dr. Cristofer Montes De Oca MD PGY-2 Planned Discharge Date 06/03/25 DS: Providers Provider Date of admission: 05/31/25 14:27 Primary care physician: Physician No Primary/Family Admitting Provider: Alejandro Capellan MD Attending Provider on Admission: Sonny Song MD Consults: 06/03/25 12:30 Referral Physical Therapy Urgent Comment: Physician Instructions: Attending Provider on DC: Sonny Song MD Discharging Provider: Jordi Cleveland DO Anticipated date of discharge: 06/03/25 DS: Diagnosis Problem List Completed Was Problem List Reviewed/Reconciled?: Yes Hospital Course Hospital Course Hospital course: is a 29F with history of anxiety, chronic alcohol abuse, chronic marijuana use, remote cocaine abuse and recent miscarriage in March 2025 admitted for acute encephalopathy. Per pt's boyfriend, she was drinking through out 05/31 and took 1 dose of lorazepam and went to sleep. On morning of 06/01, pt's boyfriend was not able to wake her up and brought her to the hospital. In the ED, UDS positive for fentanyl, benzo, and THC. EKG NSR, no ST elevation or T wave change. Head CT negative for acute hemorrhage, mass effect, or midline shift. CXR showed infiltrate to right lung. Pt received narcan and a dose of levofloxacin while in the ER. Pt was initially admitted to ICU for narcan drip and was given Unasyn, but later downgraded to MedTele as she became more alert. She was given Augmentin on her last two days of admission with continue downtrending of her WBC. Pt was advised to continue taking Augmentin after discharge. Pt was able to ambulate independently prior to discharge. Pt is medically and physically stable for discharge. Diagnosis #Aspiration pneumonia #Acute encephalopathy - resolved #NSTEMI Type II - resolved #Transaminitis - resolved #IRENA - resolved #Chronic alcohol abuse #Normocytic normochromic anemia Discharge Plan: Follow up with primary care physician within 1 week of discharge You have been prescribed Augmentin which is an antibiotic please take this medication as prescribed Should your symptoms recur or worsen patient is instructed to return to the ED. Case discussed with my senior resident Dr. Mckeon Case discussed with my attending Dr. Duncan Cleveland DO PGY 1 Time Spent with Patient Time attestation: Total time spent providing and/or coordinating discharge services: Time spent: Greater than 30 minutes Home Health Home Health Referral Orders: 06/03/25 15:10 Home Health Referral Routine Reason For Exam: Physical therapy Home-Bound The patient must either because of illness or injury, need the aid of supportive devices such as crutches, canes, wheelchairs, and walkers; the use of special transportation; or the assistance of another person in order to leave their place of residence; OR have a condition such that leaving his or her home is medically contraindicated. In addition, the patient also meets the following criteria: patient is normally unable to leave the home and leaving home requires considerable taxing effort. Addendum to Home Health Certification Practitioner's Certification: I certify that the patient has been under my care in the hospital and the care of attending physician (see below). We had a [id number] encounter on (see date below). My clinical findings indicate that the patient is home bound per the above criteria and the Home Health Services noted in these orders are medically necessary. The primary reason for the [id number] encounter is related to the fact that the patient requires home health services. Date Certifying [id number]-Rlsl Physician Encounter: 05/31/25 Physician's Name who will Assume Oversight for HH Services: Physician No Primary/Family SECTION CUTTER - Community Resources: Yes PT to Evaluate: Yes PT to evaluate and provide a treatmnet plan to increase patient's mobility and strength. Wound Care: No IV Therapy: No RN Safety Evaluation: Yes RN to evaluate and create a plan of care that will produce positive outcomes. Palliative Treatment: No Palliative treatment and evaluate the need for hospice. Home Health Aide - Personal Care: No Home Health Aide to assist with any ADL's. Exam Vital Signs Temp Pulse Resp BP Pulse Ox O2 Del Method O2 Flow Rate 97.8 F 86 26 H 127/72 95 Oxy Mask 5 06/03/25 12:00 06/03/25 12:00 06/03/25 12:00 06/03/25 12:00 06/03/25 12:00 06/03/25 12:00 06/03/25 12:00 Discharge Plan Plan Patient Disposition: HOME (Self Care) Care Plan Goals: Follow up with primary care physician within 1 week of discharge You have been prescribed Augmentin which is an antibiotic please take this medication as prescribed Should your symptoms recur or worsen patient is instructed to return to the ED. Prescriptions/Referrals Prescriptions/Med Rec: New amoxicillin-pot clavulanate 875-125 mg tablet 1 tab PO BID 7 Days Qty: 14 0RF No Action No Known Home Medications Referrals: No Primary/Family,Physician [Primary Care Provider] - Patient/Caregiver Discharge Instructions Education Materials: ED Pneumonia (Adult) Print Language: Mohawk Stand Alone Forms: Rin Award Info., Patient Portal Info Letter Discharge Order Discharge Orders: Discharge (Routine); Ordered 06/03/25 Ordered By: Robinson Montes De Oca Quality Discharge Quality Measures none MD Attestestation MD Attestation I have examined the patient, reviewed labs and imaging findings, discussed the case with the resident(s), and reviewed entered orders. I agree with the plan of care as outlined in this note. Time Spent: [address] Duncan MD
--- NOTE | 2025-06-03 17:20 | PC.PT ---
Patient is safe to ambulate to the bathroom with 1 staff assist. RN made aware.
== END 2025-06-03 16:27 | disposition home or self-care (01) | DRG 137 ==
LOC: SERX 14:05 → SERHOLD 14:52 → S2SX 15:56 → S3NX 06-01 22:31
PROVIDERS: Student in an Organized Health Care Education/Training Program; Admitting Provider Internal Medicine; Emergency Provider Emergency Medicine; Visit Provider Student in an Organized Health Care Education/Training Program
DX: J69.0 Pneumonitis due to inhalation of food and vomit (principal); G93.40 Encephalopathy, unspecified; F41.9 Anxiety disorder, unspecified; F10.10 Alcohol abuse, uncomplicated; F12.90 Cannabis use, unspecified, uncomplicated; F11.10 Opioid abuse, uncomplicated; R00.0 Tachycardia, unspecified; I21.A1 Myocardial infarction type 2; E87.29 Other acidosis; R74.01 Elevation of levels of liver transaminase levels; N17.9 Acute kidney failure, unspecified; E87.0 Hyperosmolality and hypernatremia; E86.0 Dehydration; F19.129 Other psychoactive substance abuse with intoxication, unspecified; E87.20 Acidosis, unspecified; E83.42 Hypomagnesemia; D64.9 Anemia, unspecified
CPT/HCPCS: 36415; 36600; 70450; 71045; 80053; 80069; 80307; 80320; 81001; 82140; 82436; 82570; 82803; 83605; 83690; 83735; 83880; 84100; 84132; 84133; 84145; 84295; 84300; 84484; 85025; 87040; 87081; 87205; 93005; 93225; 96361; 96365; 96366; 96375; 96376; 97162; 99284; J0295; J0696; J1650; J1956; J2312; J2405; J2470; J3411; J3475; J3480; J7030; J7120; J7999; A9270; G0480

== ENCOUNTER 2025-07-21 21:54 | Emergency (ER) | payer MEDICAID, SELFPAY ==
[2025-07-21 21:56] VITALS: BMI 32.8
[2025-07-21 22:42] VITALS: BP 110/75; PULSE 76; RESP 16; TEMP 36.8; O2SAT 100
--- NOTE | 2025-07-21 22:56 | XR_ITS ---
Examination: Duplex scan of the lower extremity, unilateral right complete Date and time of exam: July 22, T2 thousand 25, 0058 hrs. Indications: Right leg pain beginning 3 weeks ago Technique: Duplex scan of the extremity veins using B-mode/grayscale imaging and Doppler spectral analysis and color flow Attention is directed to internal echogenicity, compression and augmentation involving these veins, color flow assessment, spectral analysis Findings: Major deep venous structures in the extremity demonstrate normal course and caliber. There is no evidence of deep vein thrombosis. Normal color flow and spectral analysis Impression: Negative for DVT..
--- NOTE | 2025-07-21 22:57 | PD.EDRME ---
Rapid Medical Screening Exam RME Arrival date/time: 07/21/25 21:54 30F with history of recent ICU admission for drug OD presents to ED with several weeks of RLE pain, swelling, and numbness/paresthesia. Chief Complaint: Extremity Problem,Nontraumatic Vital signs: Vital Signs Temperature 98.3 F 07/21/25 22:42 Pulse Rate 76 07/21/25 22:42 Respiratory Rate 16 07/21/25 22:42 Blood Pressure 110/75 07/21/25 22:42 Pulse Oximetry (%) 100 07/21/25 22:42 Oxygen Delivery Method Room Air 07/21/25 22:42
[2025-07-21 23:19] LABS: Basophils # (Auto) 0.0 Thou/mm3 (0.0-0.2); Basophils % (Auto) 0 % (0-2.5); Eosinophils # (Auto) 0.1 Thou/mm3 (0.0-0.5); Eosinophils % (Auto) 1 % (0-10); Hematocrit 39.2 % (36.0-46.0); Hemoglobin 12.3 g/dL (12.0-16.0); Immature Granulocytes Auto 0.02 Thou/mm3 (0.00-0.00); Lymphocytes # (Auto) 2.4 Thou/mm3 (1.0-4.8); Lymphocytes % (Auto) 23 % (10-50); Mean Corpuscular HGB Conc 31.4 g/dl (31.0-37.0); Mean Corpuscular Hemoglobin 27.8 pg (25.0-35.0); Mean Corpuscular Volume 89 fL (80-100); Monocytes # (Auto) 0.9 Thou/mm3 (0.0-0.8); Monocytes % (Auto) 9 % (0-12); Neutrophils # (Auto) 6.7 Thou/mm3 (1.8-7.7); Neutrophils % (Auto) 66 % (37-80); Nucleated Red Blood Cell # 0.00 Thou/mm3 (0.00-0.00); Nucleated Red Blood Cell % 0 /100 WBC (0); Platelet Count 240 Thou/mm3 (140-440); RDW Standard Deviation 41.1 fL (36.4-46.3); Red Blood Count 4.42 Miln/mm3 (4.00-5.20); White Blood Count 10.1 Thou/mm3 (3.6-11.0)
[2025-07-21 23:34] LABS: INR 1.0 (0.9-1.3); Partial Thromboplastin Time 26.4 Seconds (22.0-36.0); Prothrombin Time 10.9 Seconds (9.0-12.2)
[2025-07-21 23:37] LABS: Alanine Aminotransferase 18 U/L (10-49); Albumin, Serum 4.9 gm/dL (3.5-5.0); Albumin/Globulin Ratio 1.8 (1.2-2.2); Alkaline Phosphatase 52 U/L (46-116); Anion Gap 7 (7-16); Aspartate Amino Transferase 17 U/L (0-34); BUN/Creatinine Ratio 16 Ratio (12-20); Bilirubin,Total 0.5 mg/dL (0.3-1.2); Blood Urea Nitrogen 8 mg/dL (9-23); Calcium 10.0 mg/dL (8.3-10.6); Calcium (Corrected) 10.0 mg/dL (8.5-10.1); Carbon Dioxide 26.6 mMol/L (20.0-31.0); Chloride 105 mMol/L (98-107); Creatinine (Component) 0.5 mg/dL (0.6-1.3); Estimated Creatinine Clearance 170.4 mL/min (>60); Globulin 2.7 gm/dL (2.3-3.5); Glucose 115 mg/dL (74-106); Osmolality,Calculated 276 (275-295); Potassium 4.0 mMol/L (3.4-5.1); Sodium 139 mMol/L (136-145); Total Protein 7.6 gm/dL (5.7-8.2); eGFR > 60 See Note
--- NOTE | 2025-07-22 02:14 | PRELIM_ITS ---
Right lower extremity venous Doppler ultrasound. July 22, 2025 at 0058 hours Clinical history: Rule out deep vein thrombosis. Technique: Duplex scan of the right lower extremity deep venous systems was performed utilizing 2D grayscale imaging, Doppler spectral analysis and color flow Doppler and with compression. Comparison: None. Findings: Rush scale, color flow and spectral Doppler evaluation of the right lower extremity deep veins were performed. The common femoral, superficial femoral and popliteal veins are patent and compressible. Normal respiratory variation is noted. There is no evidence of occlusive or nonocclusive thrombus. The great saphenous vein is patent and compressible at the level of the saphenofemoral junction. The calf veins to the extent visualized are patent. Impression: No sonographic evidence of deep venous thrombosis in the right lower extremity. Report Electronically Signed By: Yohannes Jones 07/22/2025 2:14:18 AM [EST]
--- NOTE | 2025-07-22 02:46 | EDNOTE_ITS ---
ED Extremity Problem RME/HPI General Chief complaint: Extremity Problem,Nontraumatic Stated complaint: RIGHT LEG CAN'T FEEL IT FOR A MONTH Time Seen by Provider: 07/22/25 02:46 Arrival date/time: 07/21/25 21:54 30F with history of recent ICU admission for drug OD presents to ED with several weeks of RLE pain, swelling, and numbness/paresthesia. Limitations: no limitations RME / HPI RME / HPI Narrative: 07/21/25 21:54 30F with history of recent ICU admission for drug OD presents to ED with several weeks of RLE pain, swelling, and numbness/paresthesia. Related Data Previous Rx's ?Medication ?Instructions ?Recorded gabapentin 300 mg capsule 300 mg PO BID PRN nerve pain #14 07/22/25 caps Allergies Allergy/AdvReac Type Severity Reaction Status Date / Time No Known Allergies Allergy Verified 07/21/25 21:56 Review of Systems Review of Systems Systems Reviewed: All systems reviewed, normal except as documented Musculoskeletal Musculoskeletal: Reports as per HPI, Reports radiating pain into limb and Reports tingling Neurologic Neurologic: Reports tingling Past Medical History Past Medical History NEUROLOGIC: Negative Seizures CARDIAC: Negative Cardiac Disorders or Congestive Heart Failure RESPIRATORY: Negative Chronic Obstructive Pulmonary Disease (COPD) or Asthma GENITOURINARY: Negative Renal Disease ENDOCRINE: Negative Diabetes Mellitus Type 1 or Diabetes Mellitus Type 2 HEMATOLOGIC: Negative Sickle Cell Disease OTHER HISTORY: Negative Blood Transfusions, Blood Transfusion Reaction or Anesthesia Reactions Social History SMOKING STATUS: Never smoker SECOND HAND EXPOSURE: No SUBSTANCE USE: crack/cocaine ED Exam General Limitations: Present no limitations General appearance: Present alert and in no apparent distress Head Head exam: Present atraumatic Neck Neck exam: Present normal inspection, full ROM and trachea midline Chest Chest inspection: Present normal inspection and symmetric chest wall rise Extremities Exam Extremities exam: Present normal inspection and full ROM Neurological Exam Neurological exam: Present alert and oriented X3 Psychiatric Psychiatric exam: Present normal affect and normal mood Skin Skin exam: Present warm, dry, intact and normal color Course Quality Measures none Orders Category Date Time Status US venous doppler LE RT Stat Exams 07/21/25 22:56 Taken CBC Stat Lab 07/21/25 23:10 Completed CMP [Comprehensive Metabolic Panel] Stat Lab 07/21/25 23:10 Completed INR [Prothrombin Time with INR] Stat Lab 07/21/25 23:10 Completed PTT [Partial Thromboplastin Time] Stat Lab 07/21/25 23:10 Completed Vital Signs Vital signs: Vital Signs Temperature 98.3 F 07/21/25 22:42 Pulse Rate 76 07/21/25 22:42 Respiratory Rate 16 07/21/25 22:42 Blood Pressure 110/75 07/21/25 22:42 Pulse Oximetry (%) 100 07/21/25 22:42 Oxygen Delivery Method Room Air 07/21/25 22:42 O2 at 100% on RA and WNLs Extremity Problem MDM Narrative MDM Narrative:: 30F with history of recent ICU admission for drug OD presents to ED with several weeks of RLE pain, swelling, and numbness/paresthesia. Physical exam no gross abnormalities of RLE. Color normal. No obvious swelling. Patient is afebrile, calm, and alert. Telerad US no DVT. No leukocytosis or gross anemia. Coags normal. Likely sciatica. Meds and relationship counselor given. Patient data External records reviewed:: [facility] previous records Clinical information provided by:: patient Social determinants that could affect healthcare access:: mental health Patient has the following chronic illnesses:: drug How is presenting disease/condition affected by chronic disease/condition?: exacerbated by Evaluation data The following diagnostics were reviewed and interpreted by me:: lab results and radiology exam(s) Lab and/or radiology exams considered but not ordered:: ordered Interpretation Summary: above Medications / Prescriptions Medications or Prescriptions considered but not ordered:: not ordered Medication administrations:: n/a Consultations Consultation(s) initiated? (list below): No Diagnosis Extremity Problem Differential Diagnosis: herpes zoster, gout, cellulitis, superficial thrombophlebitis, deep venous thrombosis of upper extremity, lower extremity edema and deep vein thrombosis of lower extremity Most likely diagnosis given after review of the tests above:: sciatica Admission Indicated Admission indicated?: not indicated Admission Request Was there a request for admission?: No Disposition Plan Disposition Plan: Discharge Discharge Attestation Discharge Attestation: The patient and all family members were given an opportunity to ask questions and understood the discharge instructions. Discharge instructions specifically effects, indications for sooner follow up or return to the emergency department, and the expected course of current diagnosis. Patient condition: Stable Discharge Plan Plan Patient Disposition: HOME (Self Care) Discharge Disposition comment: Stable Prescriptions/Referrals Prescriptions/Med Rec: New gabapentin 300 mg capsule 300 mg PO BID PRN (Reason: nerve pain) Qty: 14 0RF Referrals: No Primary/Family,Physician [Primary Care Provider] - In 1 week Problem List Clinical Impression: Sciatica Patient/Caregiver Discharge Instructions Education Materials: ED Sciatica Additional Instructions: Please follow-up with PCP within 24-48 hours and return immediately if symptoms worsen. If problem persists, recommend outpatient PT and/or MRI follow-up. In the meantime, rest, use ice/heat, and/or compression. Print Language: Ukrainian Stand Alone Forms: Patient Portal Info Letter PA/BAND STRAIGHTENER Supervising Physician PA/BAND STRAIGHTENER Supervising Physician: Dr. Ashford
== END 2025-07-22 03:06 | disposition home or self-care (01) ==
PROVIDERS: Physician Assistant; Emergency Provider Emergency Medicine
DX: M54.31 Sciatica, right side (principal)
CPT/HCPCS: 36415; 80053; 85025; 85610; 85730; 93971; 99283

== ENCOUNTER 2025-09-02 20:33 | Emergency (ER) | payer MEDICAID, SELFPAY ==
[2025-09-02 20:36] VITALS: BMI 33.8
[2025-09-02 21:06] VITALS: BP 120/60; PULSE 84; RESP 18; TEMP 36.8; O2SAT 98
--- NOTE | 2025-09-02 21:19 | EDNOTE_ITS ---
ED OB Contraction Preg RMI/HPI General Chief complaint: Vaginal Bleeding Stated complaint: POSS MISCARAGE Time Seen by Provider: 09/02/25 20:48 Source: patient, RN notes reviewed and old records reviewed Arrival date/time: 09/02/25 20:33 Mode of arrival: ambulatory Limitations: no limitations RME / HPI RME / HPI Narrative: 30yof (1 miscarriage, 1 elective ) approx 6-7 weeks gestation presents to ED for light vaginal bleeding today. LMP end of June. Positive home test last month. Patient denies nausea/vomiting, pelvic pain or dysuria. No OB yet established for this . Related Data Previous Rx's ?Medication ?Instructions ?Recorded gabapentin 300 mg capsule 300 mg PO BID PRN nerve pain #14 07/22/25 caps Allergies Allergy/AdvReac Type Severity Reaction Status Date / Time No Known Allergies Allergy Verified 09/02/25 20:35 Review of Systems Review of Systems Systems Reviewed: All systems reviewed, normal except as documented Constitutional Constitutional: Denies chills and Denies fever(s) Genitourinary Genitourinary: Reports abnormal vaginal bleeding, Denies dysuria and Denies pelvic pain Musculoskeletal Musculoskeletal: Denies back pain Past Medical History Past Medical History GASTROINTESTINAL: Positive Obesity Surgical History OTHER SURGICAL HX: D&C Social History SMOKING STATUS: Never smoker SUBSTANCE USE: does not use ALCOHOL: Never ED Exam General Limitations: Present no limitations General appearance: Present alert and in no apparent distress Head Head exam: Present atraumatic and normocephalic Eye Eye exam: Present normal appearance, PERRL and EOMI ENT ENT exam: Present normal exam and mucous membranes moist Neck Neck exam: Present normal inspection and full ROM Chest Chest inspection: Present normal inspection and symmetric chest wall rise Respiratory Respiratory exam: Present normal lung sounds bilaterally; Absent respiratory distress Cardiovascular Cardiovascular exam: Present regular rate and normal rhythm Abdominal Exam Abdominal exam: Present soft; Absent distention, tenderness, guarding or rebound Extremities Exam Extremities exam: Present normal inspection and full ROM Neurological Exam Neurological exam: Present alert and oriented X3 Psychiatric Psychiatric exam: Present normal affect and normal mood Skin Skin exam: Present warm, dry and intact Course Quality Measures none Orders Category Date Time Status US OB transvaginal Stat Exams 09/02/25 22:11 Completed Beta HCG,Quantitative Stat Lab 09/02/25 22:46 Completed CBC Stat Lab 09/02/25 22:46 Completed CMP [Comprehensive Metabolic Panel] Stat Lab 09/02/25 22:46 Completed HCG Qualitative,Urine Stat Lab 09/02/25 21:53 Completed UA [Urinalysis] Stat Lab 09/02/25 21:53 Completed Vital Signs Vital signs: Vital Signs Temperature 98.3 F 09/02/25 21:06 Pulse Rate 84 09/02/25 21:06 Respiratory Rate 18 09/02/25 21:06 Blood Pressure 120/60 09/02/25 21:06 Pulse Oximetry (%) 98 09/02/25 21:06 Oxygen Delivery Method Room Air 09/02/25 21:06 Vaginal Bleeding MDM Narrative MDM Narrative: 30yof (1 miscarriage, 1 elective ) approx 6-7 weeks gestation presents to ED for light vaginal bleeding today. LMP end of June. Positive home test last month. Patient denies nausea/vomiting, pelvic pain or dysuria. No OB yet established for this . Patient updated on labs and imaging. Encourage close follow-up with OB for hcg recheck. Recommended daily prenatals. Stable for discharge, RTED precautions given. Patient data External records reviewed:: [facility] previous records (07/22/2025 ED visit for sciatica) Clinical information provided by:: patient Social determinants that could affect healthcare access:: other (specify) (Poor access to healthcare, unemployed) Patient has the following chronic illnesses:: Obesity How is presenting disease/condition affected by chronic disease/condition?: uneffected by Evaluation data The following diagnostics were reviewed and interpreted by me:: lab results and radiology exam(s) Lab and/or radiology exams considered but not ordered:: None Interpretation Summary: Positive upreg UA +bld/-leuks Leukocytosis (do not suspect 2/2 infectious process) hcg quant [id number] Ob ultrasound: viable IUP per my read Medications / Prescriptions Medications or Prescriptions considered but not ordered:: No antibiotics recommended at this time Medication administrations:: None Consultations Consultation(s) initiated? (list below): No Diagnosis Vaginal Bleeding Differential Diagnosis: other (Threatened miscarriage, missed , ectopic , UTI, subchorionic hemorrhage) Most likely diagnosis given after review of the tests above:: Threatened miscarriage Admission Indicated Admission indicated?: not indicated Admission Request Was there a request for admission?: No Disposition Plan Disposition Plan: Discharge Discharge Attestation Discharge Attestation: The patient and all family members were given an opportunity to ask questions and understood the discharge instructions. Discharge instructions specifically effects, indications for sooner follow up or return to the emergency department, and the expected course of current diagnosis. Patient condition: Stable Discharge Plan Plan Patient Disposition: HOME (Self Care) Patient condition on transfer: Stable Prescriptions/Referrals Prescriptions/Med Rec: No Action gabapentin 300 mg capsule 300 mg PO BID PRN (Reason: nerve pain) Qty: 14 0RF Referrals: No Primary/Family,Physician [Primary Care Provider] - In 1 week Problem List Clinical Impression: Threatened miscarriage in early Patient/Caregiver Discharge Instructions Education Materials: ED Possible Miscarriage ... Additional Instructions: Follow-up with your OB for hCG recheck. Your hCG was [address] today. Print Language: Setswana Stand Alone Forms: Rin Award Info., Patient Portal Info Letter PA/KALIN Supervising Physician RODGER/KALIN Supervising Physician: Dejon
[2025-09-02 21:56] LABS: Collection Type, Urine Clean Catch
[2025-09-02 22:09] LABS: HCG Qualitative,Urine Positive
--- NOTE | 2025-09-02 22:11 | XR_ITS ---
Examination: OB Transvaginal ultrasound of the pelvis, complete Technique: Transvaginal sonographic images pelvis performed using obrien scale imaging Exam date and time: September 12, 2000 2510 0 2:00 p.m. INDICATIONS: Vaginal bleeding beginning 2 days ago FINDINGS: Uterus 8.8 cm CRL 1.1 cm corresponds to 7 weeks 2 days gestational age Cardiac motion 153 bpm Increased echogenicity in the gestational sac Right ovary 3.2 cm arterial flow Left ovary 2.3 cm arterial flow IMPRESSION: Viable intrauterine gestation 7 weeks 2 days, recommend short-term follow-up as clinically warranted.
[2025-09-02 22:30] LABS: Amorphous Crystals,Urine Present (Absent); Bacteria,Urine Rare; Bilirubin,Urine Negative (Negative); Blood,Urine 3+ (Negative); Clarity,Urine Turbid (Clear/Hazy); Color,Urine Yellow (Lt Yel-Yel); Glucose, Urine Negative (Negative); Ketones,Urine 1+ (Negative); Leukocyte Esterase,Urine Negative (Negative); Nitrite,Urine Negative (Negative); PH,Urine 6.0 (5.0-7.0); Protein,Urine Trace (Neg - Trace); RBC,Urine 28 /hpf (0-3); Specific Gravity,Urine 1.025 (1.001-1.035); Squamous Epithelial Cell,Urine 2 /hpf (0-5); Urobilinogen,Urine Negative mg/dL (0.0-1.0); WBC,Urine 3 /hpf (0-5)
[2025-09-02 23:03] LABS: Basophils # (Auto) 0.1 Thou/mm3 (0.0-0.2); Basophils % (Auto) 0 % (0-2.5); Eosinophils # (Auto) 0.0 Thou/mm3 (0.0-0.5); Eosinophils % (Auto) 0 % (0-10); Hematocrit 36.4 % (36.0-46.0); Hemoglobin 11.8 g/dL (12.0-16.0); Immature Granulocytes Auto 0.07 Thou/mm3 (0.00-0.00); Lymphocytes # (Auto) 3.4 Thou/mm3 (1.0-4.8); Lymphocytes % (Auto) 20 % (10-50); Mean Corpuscular HGB Conc 32.4 g/dl (31.0-37.0); Mean Corpuscular Hemoglobin 27.8 pg (25.0-35.0); Mean Corpuscular Volume 86 fL (80-100); Monocytes # (Auto) 1.4 Thou/mm3 (0.0-0.8); Monocytes % (Auto) 8 % (0-12); Neutrophils # (Auto) 12.5 Thou/mm3 (1.8-7.7); Neutrophils % (Auto) 72 % (37-80); Nucleated Red Blood Cell # 0.00 Thou/mm3 (0.00-0.00); Nucleated Red Blood Cell % 0 /100 WBC (0); Platelet Count 291 Thou/mm3 (140-440); RDW Standard Deviation 40.0 fL (36.4-46.3); Red Blood Count 4.25 Miln/mm3 (4.00-5.20); White Blood Count 17.4 Thou/mm3 (3.6-11.0)
[2025-09-02 23:25] LABS: Alanine Aminotransferase 19 U/L (10-49); Albumin, Serum 5.1 gm/dL (3.5-5.0); Albumin/Globulin Ratio 1.8 (1.2-2.2); Alkaline Phosphatase 51 U/L (46-116); Anion Gap 11 (7-16); Aspartate Amino Transferase 17 U/L (0-34); BUN/Creatinine Ratio 10 Ratio (12-20); Bilirubin,Total 0.7 mg/dL (0.3-1.2); Blood Urea Nitrogen < 5 mg/dL (9-23); Calcium 9.7 mg/dL (8.3-10.6); Calcium (Corrected) 9.7 mg/dL (8.5-10.1); Carbon Dioxide 22.9 mMol/L (20.0-31.0); Chloride 105 mMol/L (98-107); Creatinine (Component) 0.5 mg/dL (0.6-1.3); Estimated Creatinine Clearance 166.8 mL/min (>60); Globulin 2.8 gm/dL (2.3-3.5); Glucose 89 mg/dL (74-106); Osmolality,Calculated 273 (275-295); Potassium 3.6 mMol/L (3.4-5.1); Sodium 139 mMol/L (136-145); Total Protein 7.9 gm/dL (5.7-8.2); eGFR > 60 See Note
[2025-09-02 23:58] LABS: Beta HCG,Quantitative 59342 mIU/mL (<5.0)
== END 2025-09-03 00:25 | disposition home or self-care (01) ==
PROVIDERS: Physician Assistant; Emergency Provider Emergency Medicine
DX: O03.9 Complete or unspecified spontaneous abortion without complication (principal); Z3A.01 Less than 8 weeks gestation of pregnancy
CPT/HCPCS: 36415; 76817; 80053; 81001; 81025; 84702; 85025; 99283

== ENCOUNTER 2025-09-20 14:05 | Emergency (ER) | payer MEDICAID, SELFPAY ==
[2025-09-20 14:38] VITALS: BP 121/84; PULSE 86; RESP 18; TEMP 36.8; O2SAT 95; BMI 30.9
--- NOTE | 2025-09-20 15:04 | PD.EDFMALE ---
ED Female Urogenital RME/HPI General Chief complaint: Urogenital-Female Stated complaint: VAGINAL ODOR Time Seen by Provider: 09/20/25 15:02 Arrival date/time: 09/20/25 14:05 Limitations: no limitations RME / HPI RME / HPI Narrative: 30 year old female with no chronic medical hx reported presents to the ED for concerns of retained products of conception vs retained tampon vs infection in her vagina. States she had found out she was ~ 8 weeks gestational age and last week on 09/12/2025 she consulted the family clinic for pills which she took the following day. States she had expelled tissue and had been bleeding and cramping since. States during that time, she was using tampons and unsure if there is retained products of conception or a tampon. No other associated symptoms or complaints reported. Related Data Previous Rx's ?Medication ?Instructions ?Recorded gabapentin 300 mg capsule 300 mg PO BID PRN nerve pain #14 07/22/25 caps Allergies Allergy/AdvReac Type Severity Reaction Status Date / Time No Known Allergies Allergy Verified 09/02/25 20:35 Review of Systems Review of Systems Systems Reviewed: All systems reviewed, normal except as documented Past Medical History Past Medical History GASTROINTESTINAL: Positive Obesity Social History SMOKING STATUS: Former smoker SECOND HAND EXPOSURE: No SUBSTANCE USE: does not use ED Exam General Limitations: Present no limitations General appearance: Present alert and in no apparent distress Head Head exam: Present atraumatic, normocephalic and normal inspection Eye Eye exam: Present normal appearance, PERRL and EOMI ENT ENT exam: Present normal exam, normal oropharynx and mucous membranes moist Neck Neck exam: Present normal inspection, full ROM and trachea midline Chest Chest inspection: Present normal inspection and symmetric chest wall rise Respiratory Respiratory exam: Present normal lung sounds bilaterally Cardiovascular Cardiovascular exam: Present regular rate, normal rhythm and normal heart sounds Abdominal Exam Abdominal exam: Present soft; Absent distention, tenderness, guarding or rebound Speculum exam: Present other (Exam performed in presence of female fire investigator. There was no foreign body and the cervix is closed. No tissue appreciated. There was minimal bleeding. ) Extremities Exam Extremities exam: Present normal inspection and full ROM Back Exam Back exam: Present normal inspection and full ROM Neurological Exam Neurological exam: Present alert, oriented X3 and CN II-XII intact Psychiatric Psychiatric exam: Present normal affect and normal mood Skin Skin exam: Present warm, dry, intact and normal color Course Quality Measures none Orders Category Date Time Status US OB <= 14 weeks fetus Stat Exams 09/20/25 15:03 Completed US renal BI Stat Exams 09/20/25 16:49 Completed Beta HCG,Quantitative Stat Lab 09/20/25 15:15 Completed CBC Stat Lab 09/20/25 15:15 Completed CMP [Comprehensive Metabolic Panel] Stat Lab 09/20/25 15:15 Completed Chlamydia/GC/TV - PCR Stat Lab 09/20/25 17:44 Completed INR [Prothrombin Time with INR] Stat Lab 09/20/25 15:15 Completed Urinalysis, C/S if Indicated Stat Lab 09/20/25 17:44 Completed Acetaminophen Tab [Tylenol Tab] Med 09/20/25 15:05 Discontinued 650 mg PO X1 ONE Vital Signs Vital signs: Vital Signs Temperature 98.2 F 09/20/25 14:38 Pulse Rate 86 09/20/25 14:38 Respiratory Rate 18 09/20/25 14:38 Blood Pressure 121/84 09/20/25 14:38 Pulse Oximetry (%) 95 09/20/25 14:38 Oxygen Delivery Method Room Air 09/20/25 14:38 Pulse ox is 95% on room air which is adequate. Urogenital - Female MDM Narrative MDM Narrative:: Aleshia Alaniz am scribing for and in the presence of Dr. Light. Patient is a 30-year-old female G2, P0 approximately 8 weeks 6 minutes in the emergency department with pelvic pain, concerned that she has a retained tampon. Performed pelvic ultrasound with female fire investigator, patient only had 1 tampon that she placed however an additional tampon that she thought she had she did not have. Cervix was closed, minimal blood. Labs with evidence of leukocytosis 11.5, no left shift, no acute metabolic disturbance, patient hCG is 538 do not have a prior for comparison. ultrasound with evidence of no intrauterine gestation no retained products of conception. Patient with some flank discomfort renal ultrasound unremarkable On re-eval patient HD stable NAD. Not septic nor toxic at this time. Will dc to home with close return precautions follow up with pcp and import and export clerk. Advised to trend HCG to zero to confirm completion of . Will need serial HCG testing. Advised to return in 2 days for hcg rechecl. Patient data External records reviewed:: [facility] previous records Clinical information provided by:: patient Social determinants that could affect healthcare access:: none Patient has the following chronic illnesses:: None reported How is presenting disease/condition affected by chronic disease/condition?: no chronic disease Evaluation data The following diagnostics were reviewed and interpreted by me:: lab results and radiology exam(s) Lab and/or radiology exams considered but not ordered:: None Interpretation Summary: Ordering Physician: Anisha Light MD Date of Service: 09/20/25 Procedure(s): US OB <= 14 weeks fetus Accession Number(s): [id number] cc: Rambo Hernandez MD; NO PRIMARY/FAMILY,PHYSICIAN; Anisha Light MD~ Examination: Complete OB ultrasound, less than 14 weeks, transabdominal Date and time of exam: September 20, 2025, 1450 hours INDICATIONS: Vaginal bleeding post D&C September 12, 2025 Technique: Obstetrical ultrasound images less than 14 weeks performed via transabdominal imaging Findings: Uterus 7.0 cm No intrauterine gestation or retained products Endometrial stripe 10 mm Right ovary 3.6 cm arterial flow Left ovary obscured by bowel gas IMPRESSION: No intrauterine gestation or retained products of conception Dictated By: Rambo Hernandez MD Signed By: <Electronically signed by Rambo Hernandez MD in OV> 09/20/25 1611 Ordering Physician: Anisha Light MD Date of Service: 09/20/25 Procedure(s): US renal BI Accession Number(s): [id number] cc: Andrew Villegas MD; NO PRIMARY/FAMILY,PHYSICIAN; Anisha Light MD~ EXAMINATION: US renal BI HISTORY: pyelonephritis, urolithiasis COMPARISON: 11/25/2022, CT abdomen pelvis. FINDINGS: Right kidney length: 10.4 cm. Right collecting system: No hydronephrosis. Right parenchyma: Echogenicity within normal limits without focal lesion or mass. Left kidney Length: 12.6 cm. Left collecting system: No hydronephrosis. Left parenchyma: Echogenicity within normal limits without focal lesion or mass. Bladder: Not well evaluated. Decompressed on prevoid imaging. Other: No significant. IMPRESSION: 1. No acute renal findings. 2. Prevoid bladder imaging decompressed and not well evaluated. Dictated By: Andrew Villegas MD Signed By: <Electronically signed by Andrew Villegas MD in OV> 09/20/25 2528 Medications / Prescriptions Medications or Prescriptions considered but not ordered:: None Medication administrations:: Medication Administration History Discontinued Medications Acetaminophen (Acetaminophen 325 Mg Tablet) 650 mg PO X1 ONE Stop: 09/20/25 15:06 Last Admin: 09/20/25 15:37 Dose: 650 mg Documented By: DL See above Consultations Consultation(s) initiated? (list below): No Diagnosis Urogenital Female Differential Diagnosis: urinary tract infection, bacterial vaginosis, cervicitis, vaginitis and other (Foreign body ) Most likely diagnosis given after review of the tests above:: Elevated serum hCG Pelvic pain Admission Indicated Admission indicated?: not indicated Explain why admission is indicated or not indicated:: With no condition needing emergent intervention, there was no indication for admission. Admission Request Was there a request for admission?: No Disposition Plan Disposition Plan: Discharge Discharge Attestation Discharge Attestation: The patient and all family members were given an opportunity to ask questions and understood the discharge instructions. Discharge instructions specifically effects, indications for sooner follow up or return to the emergency department, and the expected course of current diagnosis. Patient condition: Stable Discharge Plan Plan Patient Disposition: HOME (Self Care) Prescriptions/Referrals Prescriptions/Med Rec: No Action gabapentin 300 mg capsule 300 mg PO BID PRN (Reason: nerve pain) Qty: 14 0RF Referrals: No Primary/Family,Physician [Primary Care Provider] - In 1 week Problem List Clinical Impression: Elevated serum hCG, Pelvic pain Patient/Caregiver Discharge Instructions Education Materials: ED Pain, Acute, Uncertain Cause Additional Instructions: Your hCG today was 538. Your pelvic ultrasound did not identify any retained products of conception. Please follow-up with an manager underwriting within the next 2 days to repeat your hCG and US to continue trending until at 0 to make sure that your is complete. Return immediately if you have fevers chills or any symptoms of concern Print Language: Slovenian Stand Alone Forms: Rin Award Info., Patient Portal Info Letter
[2025-09-20 15:21] LABS: Basophils # (Auto) 0.1 Thou/mm3 (0.0-0.2); Basophils % (Auto) 1 % (0-2.5); Eosinophils # (Auto) 0.1 Thou/mm3 (0.0-0.5); Eosinophils % (Auto) 1 % (0-10); Hematocrit 36.5 % (36.0-46.0); Hemoglobin 11.7 g/dL (12.0-16.0); Immature Granulocytes Auto 0.03 Thou/mm3 (0.00-0.00); Lymphocytes # (Auto) 2.1 Thou/mm3 (1.0-4.8); Lymphocytes % (Auto) 18 % (10-50); Mean Corpuscular HGB Conc 32.1 g/dl (31.0-37.0); Mean Corpuscular Hemoglobin 27.5 pg (25.0-35.0); Mean Corpuscular Volume 86 fL (80-100); Monocytes # (Auto) 1.2 Thou/mm3 (0.0-0.8); Monocytes % (Auto) 11 % (0-12); Neutrophils # (Auto) 8.1 Thou/mm3 (1.8-7.7); Neutrophils % (Auto) 70 % (37-80); Nucleated Red Blood Cell # 0.00 Thou/mm3 (0.00-0.00); Nucleated Red Blood Cell % 0 /100 WBC (0); Platelet Count 278 Thou/mm3 (140-440); RDW Standard Deviation 40.0 fL (36.4-46.3); Red Blood Count 4.25 Miln/mm3 (4.00-5.20); White Blood Count 11.5 Thou/mm3 (3.6-11.0)
[2025-09-20] MEDS: ACETAMINOPHEN 325 MG TABLET 650 MG PO (15:37)
[2025-09-20 15:42] LABS: INR 1.0 (0.9-1.3); Prothrombin Time 10.3 Seconds (9.0-12.2)
[2025-09-20 15:51] LABS: Alanine Aminotransferase 24 U/L (10-49); Albumin, Serum 4.9 gm/dL (3.5-5.0); Albumin/Globulin Ratio 1.8 (1.2-2.2); Alkaline Phosphatase 57 U/L (46-116); Anion Gap 11 (7-16); Aspartate Amino Transferase 28 U/L (0-34); BUN/Creatinine Ratio 15 Ratio (12-20); Beta HCG,Quantitative 538 mIU/mL (<5.0); Bilirubin,Total 1.0 mg/dL (0.3-1.2); Blood Urea Nitrogen 9 mg/dL (9-23); Calcium 9.2 mg/dL (8.3-10.6); Calcium (Corrected) 9.2 mg/dL (8.5-10.1); Carbon Dioxide 23.7 mMol/L (20.0-31.0); Chloride 108 mMol/L (98-107); Creatinine (Component) 0.6 mg/dL (0.6-1.3); Estimated Creatinine Clearance 138.0 mL/min (>60); Globulin 2.7 gm/dL (2.3-3.5); Glucose 102 mg/dL (74-106); Osmolality,Calculated 283 (275-295); Potassium 3.7 mMol/L (3.4-5.1); Sodium 143 mMol/L (136-145); Total Protein 7.6 gm/dL (5.7-8.2); eGFR > 60 See Note
--- NOTE | 2025-09-20 16:49 | XR_ITS ---
EXAMINATION: US renal BI HISTORY: pyelonephritis, urolithiasis COMPARISON: 11/25/2022, CT abdomen pelvis. FINDINGS: Right kidney length: 10.4 cm. Right collecting system: No hydronephrosis. Right parenchyma: Echogenicity within normal limits without focal lesion or mass. Left kidney Length: 12.6 cm. Left collecting system: No hydronephrosis. Left parenchyma: Echogenicity within normal limits without focal lesion or mass. Bladder: Not well evaluated. Decompressed on prevoid imaging. Other: No significant. IMPRESSION: 1. No acute renal findings. 2. Prevoid bladder imaging decompressed and not well evaluated.
[2025-09-20 17:16] VITALS: BP 120/76; PULSE 69; RESP 16; TEMP 36.8; O2SAT 95
[2025-09-20 18:13] LABS: Collection Type, Urine Clean Catch
[2025-09-20 18:28] LABS: Amorphous Crystals,Urine Present (Absent); Bilirubin,Urine Negative (Negative); Blood,Urine Negative (Negative); Clarity,Urine Clear (Clear/Hazy); Color,Urine Yellow (Lt Yel-Yel); Culture Indicated,Urine Not Indicated; Glucose, Urine Negative (Negative); Ketones,Urine Trace (Negative); Leukocyte Esterase,Urine Positive (Negative); Nitrite,Urine Negative (Negative); PH,Urine 6.0 (5.0-7.0); Protein,Urine 1+ (Neg - Trace); RBC,Urine 9 /hpf (0-3); Specific Gravity,Urine 1.045 (1.001-1.035); Squamous Epithelial Cell,Urine 8 /hpf (0-5); Urobilinogen,Urine 3.0 mg/dL (0.0-1.0); WBC,Urine 1 /hpf (0-5)
[2025-09-21 15:59] LABS: Chlamydia trachomatis PCR Negative (Not Detect); Neisseria Gonorrhoeae DNA PCR Negative (Not Detect); Trichomonas Negative (Negative)
== END 2025-09-20 19:50 | disposition home or self-care (01) ==
PROVIDERS: Emergency Provider Emergency Medicine
DX: R10.20 Pelvic and perineal pain unspecified side (principal)
CPT/HCPCS: 36415; 76770; 76801; 80053; 81001; 84702; 85025; 85610; 87491; 87591; 87661; 99283; A9270